=== PATIENT | male | born 1965 | race Caucasian/White ===

== ENCOUNTER → 2017-06-11 | Outpatient (CLI) | payer OTHER ==
[~2017-06-11] MED LIST: AMPDEX5 PO; ASPI81CH PO; Adderall Xr 2525 MG PO; CARI350 PO; CEPH500 PO; CHOL10002 PO; Cleocin HCl300 MG PO; DIAZ5 PO; DILT120 PO; DILT30 PO; DIPATR PO; DOCU100 PO; DULO30 PO; Dialyvite 5000 T5 MG PO; Diltiazem ER60 MG PO; FOLI1 PO; HUMIRA10 MG/0.2 SQ; HYDACE5 PO; HYDACE5325 PO; IBUP800 PO; INDO25 PO; METTREX2.5; MULVITMIND PO; NABU750 PO; OMEP20ER; OMEP40CA12 PO; OTREXUP; OXYACE5T PO; PIRO10 PO; PIRO20 PO; PRED10 PO; PRED5; PRED5 PO; PROM25 PO; Percocet 10-321 EACH PO; Percocet 5-3251 EACH PO; Prednisone20 MG PO; SOMA350 MG PO; SUCR1 PO; SULTRIDS PO; Valium5 MG PO; Zofran8 MG PO
== END | disposition home or self-care (01) ==
LOC: LAB EV 13:30 → LAB SHORT 13:30
DX: R35.0 Frequency of micturition (principal)
CPT/HCPCS: 87086

== ENCOUNTER → 2017-11-06 | Outpatient (CLI) | payer OTHER ==
[2017-11-12 12:10] LABS: M-SPIKE, % Not Observed % (Not Observed); PROTEIN,TOTAL,URINE 4.1 mg/dL (Not Estab.)
== END | disposition home or self-care (01) ==
LOC: LAB EV 06:00 → LAB SHORT 06:00
PROVIDERS: Internal Medicine
DX: R20.2 Paresthesia of skin (principal)
CPT/HCPCS: 84156; 84166

== ENCOUNTER 2018-08-06 11:00 | Emergency (ER) | payer OTHER ==
[~2018-08-06] VITALS: Ht 190.5 cm; Wt 111.1 kg
[2018-08-06] MEDS ORDERED: Percocet 10-321 EACH PO (11:27)
[2018-08-06] MEDS ORDERED: OMEPRAZOLE20 MG PO (11:27)
[2018-08-06] MEDS ORDERED: AMPDEX5 PO (11:28)
== END 2018-08-06 13:11 | disposition home or self-care (01) ==
LOC: ER 11:00
DX: M87.9 Osteonecrosis, unspecified (principal); Z79.899 Other long term (current) drug therapy; I47.1 Supraventricular tachycardia
CPT/HCPCS: 73502; 96372; 99283-25; J1170

== ENCOUNTER 2018-09-13 15:08 | Emergency (ER) | payer OTHER ==
[~2018-09-13] VITALS: Ht 193 cm; Wt 112.0 kg
[~2018-09-13 15:08] MED LIST changes: +GABA300T24 PO; +OMEPRAZOLE20 MG PO
== END 2018-09-13 17:23 | disposition home or self-care (01) ==
LOC: ER 15:08
DX: M87.9 Osteonecrosis, unspecified (principal); Z79.899 Other long term (current) drug therapy; Z79.891 Long term (current) use of opiate analgesic
CPT/HCPCS: 73502; 96372; 99283-25; J1170

== ENCOUNTER 2018-09-16 09:50 | Inpatient (IN) | payer OTHER ==
[~2018-09-16] VITALS: Ht 193 cm; Wt 112.5 kg
--- NOTE | 2018-09-16 10:24 | NUR ---
ADMISSION STARTED TO UNIT VSS BROUGHT TO UNIT IN WHEEL CHAIR. History, Chart, Medications and Allergies reviewed before start of procedure.Lungs clear T/O to Auscultation. Patient confirms NPO status and agrees with scheduled surgery.
--- NOTE | 2018-09-16 15:30 | NUR ---
"DAY SURGERY RN | ASSUMED CARE FROM RAMESH MENON. VSS. A/O. SITE C/D/I. LUNGS CLEAR. FACE TENT ON AT 10 L."
--- NOTE | 2018-09-16 16:02 | NUR ---
"DAY SURGERY RN | HANDOFF TO SAMUEL MENON"
--- NOTE | 2018-09-16 16:13 | NUR ---
at 1528 care was given to bo from [facility] at this time 1600 care taken over by arnie rendon recieved report vss. gave report to surgical floor nkurse. dressing cdi
--- NOTE | 2018-09-16 16:31 | NUR ---
PATIENT TAKEN TO SURGICAL FLOOR. REPORT GIVEN TO YOUNG MCFARLAND RN. PATIENT TAKEN TO ROOM 215
[2018-09-16] MEDS ORDERED: Bisoprolol Fumar5 MG PO (17:02)
--- NOTE | 2018-09-16 18:04 | NUR ---
POST OP: REPORT RECIEVED FROM SAMUEL IN PACU. PT TO UNIT AT ABOUT 1530. UPON ASSESSMENT PT IS A/O, VSS. REPORTS 8/10 PAIN AT L HIP. SURGICAL DRESSING CDI. ICE APPLIED. PT ABLE TO EAT JELLO, CRACKERS AND DRINK WATER. GIVEN 10MG OF ROXICODONE AND TYLENOL PER EMAR. ADMISSION CHARTING COMPLETED, WILL CTM PT STATUS
--- NOTE | 2018-09-16 18:43 | NUR ---
SUMMARY: NO CHANGE SINCE RECIEVED PT POST OP. VSS, PT A/O RATES PAIN 6/10, REPORTS "IS GETTING BETTER". PT GIVEN TYLENOL AND TORADOL WELL. AT BEDSIDE. WILL CTM AND REPORT TO DAY RN
[2018-09-17 04:46] LABS: BASOPHILS ABSOLUTE AUTO 0.01 K/mm3 (0.00-0.23); BASOPHILS PERCENT AUTO 0 % (0-2); EOSINOPHILS ABSOLUTE AUTO 0.02 K/mm3 (0.00-0.68); EOSINOPHILS PERCENT AUTO 0 % (0-6); Hematocrit 38.2 % (37.0-53.0); Hemoglobin 12.6 g/dL (13.5-17.5); IMMATURE GRAN ABSOLUTE AUTO 0.03 K/mm3 (0.00-0.10); IMMATURE GRAN PERCENT AUTO 0 % (0-1); LYMPHOCYTES ABSOLUTE AUTO 1.81 K/mm3 (0.84-5.20); LYMPHOCYTES PERCENT AUTO 16 % (21-46); MONOCYTES ABSOLUTE AUTO 0.98 K/mm3 (0.16-1.47); MONOCYTES PERCENT AUTO 9 % (4-13); Mean Corpuscular HGB 31.5 pg (26.0-34.0); Mean Corpuscular Volume 96 fL (80-100); Mean Platelet Volume 9.1 fL (9.1-12.4); NEUTROPHILS ABSOLUTE AUTO 8.49 K/mm3 (1.96-9.15); NEUTROPHILS PERCENT AUTO 75 % (41-73); Platelet Count 199 K/mm3 (150-400); RDW Standard Deviation 42.2 fL (35.1-46.3); White Blood Cell Count 11.34 K/mm3 (4.00-11.30)
[2018-09-17 05:00] LABS: Anion Gap 5 mmol/L (6-16); Blood Urea Nitrogen 16 mg/dL (8-24); Bun/Creatinine Ratio 16.4 (12.0-20.0); CO2, Blood 28 mmol/L (21-32); Calcium, Blood 8.4 mg/dL (8.5-10.1); Chloride, Blood 107 mmol/L (98-108); Creatinine, Blood 0.98 mg/dL (0.60-1.20); Glomerular Filtration Rate >60 (60-); Glucose, Blood 117 mg/dL (70-99); Magnesium, Blood 2.1 mg/dL (1.6-2.4); Potassium, Blood 4.3 mmol/L (3.5-5.5); Sodium, Blood 140 mmol/L (136-145)
--- NOTE | 2018-09-17 08:03 | NUR ---
SUMMARY: POD [address] BAIRES. VSS, AFEBRILE, TOLERATING PO INTAKE AND VOIDING WELL. PT PAIN WELL CONTROLLED WITH 10MG ROXICODONE X3 THIS SHIFT. PT RECEIVED IV ANCEF POST-OP AND IV VANCOMYCIN FOR OSTEONECROSIS. ANTICIPATE PT/OT THIS DAY.
[2018-09-17] MEDS ORDERED: Aspirin EC325 MG PO (15:54)
[2018-09-17] MEDS ORDERED: OXYC5 PO (15:55)
--- NOTE | 2018-09-17 16:41 | NUR ---
DISCHARGE EDUCATION COMPLETED AND PACKET WITH PT. PT UNDERSTANDS POST OP CARE, WENT OVER WITH PT ASWELL. GIVEN SURGICAL DRESSINGS. IV DC'D. PT DISCHARGED AT 1630, LEFT UNIT IN WHEEL CHAIR WITH .
--- NOTE | 2018-09-18 16:55 | NUR ---
09/18/18 1655 Poonam Green VERIFICATIONS: EDIT CHART.
== END 2018-09-17 17:09 | disposition home or self-care (01) | DRG 470 ==
LOC: SURS 09:50 → PRE IP 11:45 → SURS 16:24
PROVIDERS: ADMIT Orthopaedic Surgery
PROC: 8E0YXBZ Computer Assisted Procedure of Lower Extremity (ICD-10-PCS; 2018-09-16)
PROC: 0SRB0JA Replacement of Left Hip Joint with Synthetic Substitute, Uncemented, Open Approach (ICD-10-PCS; principal; 2018-09-16 11:45)
DX: M13.852 Other specified arthritis, left hip (principal); M87.852 Other osteonecrosis, left femur; M06.9 Rheumatoid arthritis, unspecified; I10 Essential (primary) hypertension; G47.33 Obstructive sleep apnea (adult) (pediatric); K21.9 Gastro-esophageal reflux disease without esophagitis
CPT/HCPCS: 36415; 72170; 80048; 83735; 85025; 86850; 86900; 86901; 88300; 94762; 97110; 97116; 97161; 97166; 97530; 97535; C1713; C1776; J0171; J0690; J0735; J1100; J1885; J2250; J2405; J2704; J2795; J3010; J3370; J7050; J7120

== ENCOUNTER → 2019-09-06 | Outpatient (CLI) | payer OTHER ==
[~2019-09-06] MED LIST changes: +Aspirin EC325 MG PO; +Bisoprolol Fumar5 MG PO; +OXYC5 PO
== END | disposition home or self-care (01) ==
LOC: LAB SHORT 16:13 → LAB EV 16:13
DX: J02.9 Acute pharyngitis, unspecified (principal)
CPT/HCPCS: 87081

== ENCOUNTER → 2020-03-06 | Outpatient (CLI) | payer OTHER ==
[~2020-03-06] MED LIST changes: +OMEP20ER PO; +TRAZ50 PO
== END | disposition home or self-care (01) ==
LOC: LAB EV 11:10 → LAB SHORT 11:10
DX: Z48.01 Encounter for change or removal of surgical wound dressing (principal)
CPT/HCPCS: 87070; 87205

== ENCOUNTER 2020-07-10 00:39 | Emergency (ER) | payer OTHER ==
[~2020-07-10] VITALS: Ht 193 cm; Wt 104.3 kg
[~2020-07-10 00:39] MED LIST changes: -OMEP20ER PO; -TRAZ50 PO
[2020-07-10] MEDS ORDERED: OMEP20ER PO (00:58)
[2020-07-10] MEDS ORDERED: TRAZ50 PO (00:58)
== END 2020-07-10 01:09 ==
LOC: ER 00:39
DX: Z00.00 Encounter for general adult medical examination without abnormal findings (principal); Z79.899 Other long term (current) drug therapy; Z79.82 Long term (current) use of aspirin
CPT/HCPCS: 99282

== ENCOUNTER → 2020-10-08 | Outpatient (CLI) | payer OTHER ==
[~2020-10-08] MED LIST changes: +OMEP20ER PO; +TRAZ50 PO
== END | disposition home or self-care (01) ==
LOC: LAB SHORT 11:12 → LAB EV 11:12
DX: L03.116 Cellulitis of left lower limb (principal)
CPT/HCPCS: 87070; 87077; 87147; 87186; 87205

== ENCOUNTER → 2020-10-12 | Outpatient (CLI) | payer OTHER ==
[2020-10-12 13:08] LABS: BASOPHILS ABSOLUTE AUTO 0.04 K/mm3 (0.00-0.23); BASOPHILS PERCENT AUTO 1 % (0-2); EOSINOPHILS ABSOLUTE AUTO 0.03 K/mm3 (0.00-0.68); EOSINOPHILS PERCENT AUTO 0 % (0-6); Hematocrit 48.8 % (37.0-53.0); Hemoglobin 16.4 g/dL (13.5-17.5); IMMATURE GRAN ABSOLUTE AUTO 0.02 K/mm3 (0.00-0.10); IMMATURE GRAN PERCENT AUTO 0 % (0-1); LYMPHOCYTES ABSOLUTE AUTO 1.39 K/mm3 (0.84-5.20); LYMPHOCYTES PERCENT AUTO 17 % (21-46); MONOCYTES ABSOLUTE AUTO 0.56 K/mm3 (0.16-1.47); MONOCYTES PERCENT AUTO 7 % (4-13); Mean Corpuscular HGB 31.4 pg (26.0-34.0); Mean Corpuscular HGB Conc 33.6 g/dL (31.5-36.5); Mean Corpuscular Volume 94 fL (80-100); Mean Platelet Volume 8.6 fL (9.1-12.4); NEUTROPHILS ABSOLUTE AUTO 6.17 K/mm3 (1.96-9.15); NEUTROPHILS PERCENT AUTO 75 % (41-73); Platelet Count 311 K/mm3 (150-400); RDW Coefficient Variation 12.7 % (11.7-14.2); RDW Standard Deviation 43.7 fL (35.1-46.3); Red Blood Cell Count 5.22 M/mm3 (4.30-5.90); White Blood Cell Count 8.21 K/mm3 (4.00-11.30)
== END | disposition home or self-care (01) ==
LOC: LAB 13:04 → LAB SHORT 13:04
PROVIDERS: Physician Assistant
DX: L08.9 Local infection of the skin and subcutaneous tissue, unspecified (principal)
CPT/HCPCS: 85025

== ENCOUNTER → 2021-02-22 | Outpatient (CLI) | payer OTHER ==
[2021-02-22 20:49] LABS: Adenovirus F 40/41 Not Detected (NOT DETECT); Astrovirus Not Detected (NOT DETECT); Campylobacter Sp Not Detected (NOT DETECT); Cryptosporidium Not Detected (NOT DETECT); Cyclospora Cayetanensis Not Detected (NOT DETECT); E. Coli O157 Not Detected (NOT DETECT); Entamoeba Histolytica Not Detected (NOT DETECT); Enteroaggregative E. coli-EAEC Not Detected (NOT DETECT); Enteropathogenic E. coli-EPEC Not Detected (NOT DETECT); Enterotoxigenic E. coli-ETEC Not Detected (NOT DETECT); Giardia Lamblia Not Detected (NOT DETECT); Norovirus GI/GII Not Detected (NOT DETECT); Plesiomonas Shigelloides Not Detected (NOT DETECT); Rotavirus A Not Detected (NOT DETECT); Salmonella Sp Not Detected (NOT DETECT); Sapovirus Not Detected (NOT DETECT); Shiga Toxin-prod E. coli-STEC Not Detected (NOT DETECT); Shigella/Enteroin E. coli-EIEC Not Detected (NOT DETECT); Vibrio Cholerae Not Detected (NOT DETECT); Vibrio Sp Not Detected (NOT DETECT); Yersinia Enterocolitica Not Detected (NOT DETECT)
== END | disposition home or self-care (01) ==
LOC: LAB 13:40 → LAB SHORT 13:40
PROVIDERS: Internal Medicine
DX: A06.1 Chronic intestinal amebiasis (principal)
CPT/HCPCS: 0097U

== ENCOUNTER 2022-09-03 07:51 | Day surgery (SDC) | payer OTHER ==
[2022-09-03] VITALS (14 sets, daily range): BP systolic 100–141; BP diastolic 60–88
[~2022-09-03] VITALS: Ht 193 cm; Wt 102.4 kg
[~2022-09-03 07:51] MED LIST changes: +AMLO5 PO; +Cialis5 MG PO; +DESVENLAFAXINE25 MG PO; +Feldene20 MG PO; +GABA300 PO; -GABA300T24 PO; +MULVITA PO; +OXYC10ER PO; +STOOL SOFTENER PO; +Voltaren100 GM TOP; +ZOLP10 PO
--- NOTE | 2022-09-03 09:20 | NUR ---
Ambulatory in Day SurgeryPre-Op teaching done. Pt verbalizes understanding. Patient confirms NPO status and agrees with scheduled surgery. History, Chart, Medications and Allergies reviewed before start of procedure.
--- NOTE | 2022-09-03 11:10 | NUR ---
09/03/22 1110 Zenaida Lora SMALL SCRAPE WITH SCAB ON PTS RIGHT KIM UPON ARRIVAL TO THE OR
--- NOTE | 2022-09-03 13:00 | NUR ---
ARRIVAL PATIENT TO ROOM 217 VIA BED. VSS ON RA, LUNGS CLEAR. X2 AQUACELS TO RIGHT KNEE, S/P R TKA, POLAR PACK IN PLACE. PATIENT HAD SPINAL, SENSATION TO HIPS CURRENTLY, UNABLE TO MOVE FEET AT THIS ITME. DENIES PAIN. ORIENTED TO ROOM & CALL LIGHT, IN REACH. TOLERATING WATER & JELLO AT THIS TIME.
--- NOTE | 2022-09-03 18:08 | NUR ---
SHIFT SUMMARY NO ACUTE CHANGES SINCE ARRIVAL TO UNIT. PATIENT DENIES PAIN, STILL HAS NUMBNESS TO RLE, FULL SENSATION HAS NOT RETURNED. PATIENT HAS NOT BEEN OOB YET D/T THIS. AQUACELS TO RIGHT KNEE C/D/I. POLAR PACK IN PLACE. GALI MANNING. HOME CPAP SETUP AT [facility] W/ 2L O2 BLEED IN. CALLS APPROPRIATELY, IN REACH. WILL REPORT TO ONCOMING RN AT 1900.
[2022-09-04 02:46] VITALS: BP 123/73
--- NOTE | 2022-09-04 04:43 | NUR ---
SHIFT SUMMARY A/O X4- POD1 R TKA, AQUACEL C/D/I. AMBULATED TO BATHROOM W/ SBA, FWW, AND GB. VOIDING WELL, TOLERATED PO INTAKE W/ NO N/V REPORTED. PAIN MANAGED W/ PO PAIN MEDICATIONS. VSS. WILL REPORT TO ONCOMING RN.
[2022-09-04 04:51] LABS: BASOPHILS ABSOLUTE AUTO 0.01 K/mm3 (0.00-0.23); BASOPHILS PERCENT AUTO 0 % (0-2); EOSINOPHILS ABSOLUTE AUTO 0.02 K/mm3 (0.00-0.68); EOSINOPHILS PERCENT AUTO 0 % (0-6); Hematocrit 37.6 % (37.0-53.0); Hemoglobin 12.6 g/dL (13.5-17.5); IMMATURE GRAN ABSOLUTE AUTO 0.04 K/mm3 (0.00-0.10); IMMATURE GRAN PERCENT AUTO 0 % (0-1); LYMPHOCYTES ABSOLUTE AUTO 1.39 K/mm3 (0.84-5.20); LYMPHOCYTES PERCENT AUTO 12 % (21-46); MONOCYTES ABSOLUTE AUTO 0.77 K/mm3 (0.16-1.47); MONOCYTES PERCENT AUTO 7 % (4-13); Mean Corpuscular HGB Conc 33.5 g/dL (31.5-36.5); Mean Corpuscular Volume 95 fL (80-100); Mean Platelet Volume 9.7 fL (9.1-12.4); NEUTROPHILS ABSOLUTE AUTO 9.07 K/mm3 (1.96-9.15); NEUTROPHILS PERCENT AUTO 80 % (41-73); Platelet Count 205 K/mm3 (150-400); RDW Coefficient Variation 12.9 % (11.7-14.2); RDW Standard Deviation 45.4 fL (35.1-46.3); Red Blood Cell Count 3.94 M/mm3 (4.30-5.90)
[2022-09-04 05:13] LABS: Bun/Creatinine Ratio 20.6 (12.0-20.0); Calcium, Blood 8.5 mg/dL (8.5-10.1); Creatinine, Blood 0.83 mg/dL (0.60-1.20); Magnesium, Blood 2.2 mg/dL (1.6-2.4); Potassium, Blood 4.3 mmol/L (3.5-5.5)
[2022-09-04] MEDS ORDERED: ASPI81CH PO (07:18)
[2022-09-04] MEDS ORDERED: ACET500 PO (07:18)
[2022-09-04] MEDS ORDERED: SULTRIDS PO (07:19)
[2022-09-04 07:46] VITALS: BP 131/79
--- NOTE | 2022-09-04 09:30 | NUR ---
DISCHARGE PT HAS CLEARED THERAPY WELL. PAIN WELL CONTROLLED PER EMAR. EATING, DRINKING, & VOIDING WELL. DISCUSSED DISCHARGE INSTRUCTIONS,S ENT WITH PATIENT. AQUACELS & POLAR PACK ALSO SENT WITH PATIENT. ESCORTED OUT VIA W/C.
== END 2022-09-04 09:15 | disposition home or self-care (01) ==
LOC: ORSCMMR 07:51 → ORD 10:15 → SURS 13:00 → ORSCMMR 09-04 09:15
PROVIDERS: Orthopaedic Surgery
PROC: 0SRC0JA Replacement of Right Knee Joint with Synthetic Substitute, Uncemented, Open Approach (ICD-10-PCS; principal; 2022-09-03 10:15)
PROC: 8E0Y0CZ Robotic Assisted Procedure of Lower Extremity, Open Approach (ICD-10-PCS; principal; 2022-09-03 10:15)
DX: M17.11 Unilateral primary osteoarthritis, right knee (principal); K21.9 Gastro-esophageal reflux disease without esophagitis; G47.33 Obstructive sleep apnea (adult) (pediatric); E78.5 Hyperlipidemia, unspecified; I10 Essential (primary) hypertension; Z79.899 Other long term (current) drug therapy
CPT/HCPCS: 27447; 20985; S2900; 36415; 73560-RT; 80048; 83735; 85025; 94660; 94762; 97110; 97116; 97162; A9270; C1776; J0171; J0690; J0735; J0780; J1100; J1885; J2250; J2405; J2704; J2795; J3010; J7120

== ENCOUNTER 2022-09-30 19:18 | Emergency (ER) | payer OTHER ==
[~2022-09-30] VITALS: Ht 193 cm; Wt 103.4 kg
[~2022-09-30 19:18] MED LIST changes: +ACET500 PO; +Amphetamine Sal30 MG PO; -OXYC10ER PO; +OXYC10TA19 PO
[2022-09-30 19:46] LABS: BASOPHILS ABSOLUTE AUTO 0.02 K/mm3 (0.00-0.23); BASOPHILS PERCENT AUTO 0 % (0-2); EOSINOPHILS PERCENT AUTO 0 % (0-6); Hematocrit 40.1 % (37.0-53.0); Hemoglobin 13.5 g/dL (13.5-17.5); IMMATURE GRAN ABSOLUTE AUTO 0.03 K/mm3 (0.00-0.10); IMMATURE GRAN PERCENT AUTO 0 % (0-1); LYMPHOCYTES ABSOLUTE AUTO 0.45 K/mm3 (0.84-5.20); LYMPHOCYTES PERCENT AUTO 6 % (21-46); MONOCYTES PERCENT AUTO 7 % (4-13); Mean Corpuscular HGB 31.6 pg (26.0-34.0); Mean Corpuscular HGB Conc 33.7 g/dL (31.5-36.5); Mean Corpuscular Volume 94 fL (80-100); Mean Platelet Volume 8.9 fL (9.1-12.4); NEUTROPHILS ABSOLUTE AUTO 6.27 K/mm3 (1.96-9.15); NEUTROPHILS PERCENT AUTO 86 % (41-73); Platelet Count 183 K/mm3 (150-400); RDW Coefficient Variation 13.5 % (11.7-14.2); RDW Standard Deviation 46.5 fL (35.1-46.3); Red Blood Cell Count 4.27 M/mm3 (4.30-5.90); White Blood Cell Count 7.27 K/mm3 (4.00-11.30)
[2022-09-30 20:07] LABS: Albumin, Blood 3.6 g/dL (3.4-5.0); Bilirubin, Total 0.5 mg/dL (0.1-1.0); Bun/Creatinine Ratio 19.2 (12.0-20.0); Calcium, Blood 8.8 mg/dL (8.5-10.1); Creatinine, Blood 1.04 mg/dL (0.60-1.20); Globulin, Blood 3.6 g/dL (2.2-4.0); Potassium, Blood 3.8 mmol/L (3.5-5.5); Total Protein, Blood 7.2 g/dL (6.4-8.2)
[2022-09-30 22:57] LABS: Influenza A, PCR NEGATIVE (NEGATIVE); Influenza B, PCR NEGATIVE (NEGATIVE); Resp Syncytial Virus, PCR NEGATIVE (NEGATIVE); SARS-Cov-2 (COVID-19) PCR, MMC NEGATIVE (NEGATIVE)
[2022-09-30 23:00] VITALS: BP 126/85
[2022-09-30] MEDS ORDERED: ONDA4ODT MM ×2 (23:19)
[2022-09-30] MEDS ORDERED: HYOS.125 PO ×2 (23:19)
== END 2022-09-30 23:43 | disposition home or self-care (01) ==
LOC: ER 19:18
PROVIDERS: Emergency Medicine
DX: K52.9 Noninfective gastroenteritis and colitis, unspecified (principal); R50.9 Fever, unspecified; Z96.651 Presence of right artificial knee joint; Z79.899 Other long term (current) drug therapy; Z79.82 Long term (current) use of aspirin
CPT/HCPCS: 0241U; 74177; 80053; 83605; 83690; 85025; 96374-59; 96375; 99284-25; A9270; J1885; J2270; J2405; J7030; Q9967

== ENCOUNTER 2022-10-02 11:03 | Inpatient (IN) | payer OTHER ==
[~2022-10-02 11:03] MED LIST changes: +HYOS.125 PO; +ONDA4ODT MM
[2022-10-02 12:35] LABS: BASOPHILS ABSOLUTE AUTO 0.02 K/mm3 (0.00-0.23); BASOPHILS PERCENT AUTO 0 % (0-2); EOSINOPHILS PERCENT AUTO 0 % (0-6); Hematocrit 36.9 % (37.0-53.0); Hemoglobin 12.1 g/dL (13.5-17.5); IMMATURE GRAN ABSOLUTE AUTO 0.05 K/mm3 (0.00-0.10); IMMATURE GRAN PERCENT AUTO 1 % (0-1); LYMPHOCYTES ABSOLUTE AUTO 0.41 K/mm3 (0.84-5.20); LYMPHOCYTES PERCENT AUTO 4 % (21-46); MONOCYTES ABSOLUTE AUTO 0.34 K/mm3 (0.16-1.47); MONOCYTES PERCENT AUTO 3 % (4-13); Mean Corpuscular HGB 31.7 pg (26.0-34.0); Mean Corpuscular HGB Conc 32.8 g/dL (31.5-36.5); Mean Corpuscular Volume 97 fL (80-100); Mean Platelet Volume 9.7 fL (9.1-12.4); NEUTROPHILS ABSOLUTE AUTO 9.04 K/mm3 (1.96-9.15); NEUTROPHILS PERCENT AUTO 92 % (41-73); Platelet Count 126 K/mm3 (150-400); RDW Coefficient Variation 13.5 % (11.7-14.2); RDW Standard Deviation 48.3 fL (35.1-46.3); Red Blood Cell Count 3.82 M/mm3 (4.30-5.90); White Blood Cell Count 9.86 K/mm3 (4.00-11.30)
[2022-10-02 12:57] LABS: Albumin, Blood 2.7 g/dL (3.4-5.0); Albumin/Globulin Ratio 0.7 (0.8-1.8); Bilirubin, Total 0.6 mg/dL (0.1-1.0); Bun/Creatinine Ratio 18.9 (12.0-20.0); Calcium, Blood 8.6 mg/dL (8.5-10.1); Creatinine, Blood 0.95 mg/dL (0.60-1.20); Potassium, Blood 3.7 mmol/L (3.5-5.5); Total Protein, Blood 6.7 g/dL (6.4-8.2)
[2022-10-02 15:15] LABS: Glucose, CSF 70 mg/dL (40-70)
[2022-10-02 15:24] LABS: RBC Count, CSF 1138 /mm3 (0-0)
[2022-10-02 15:25] LABS: Color, CSF Pink (No Color); WBC Count, CSF 1 /mm3 (0-5)
[2022-10-02 15:26] LABS: Appearance, CSF Clear (Clear)
[2022-10-02 15:38] LABS: WBC Count, CSF 0 /mm3 (0-5)
[2022-10-02 15:39] LABS: Appearance, CSF Clear (Clear); Color, CSF No Color (No Color); RBC Count, CSF 2 /mm3 (0-0)
[2022-10-02] MEDS ORDERED: OXAYDO5 M1 PO (17:12)
[2022-10-02] MEDS ORDERED: METO10 PO ×2 (17:12)
[2022-10-02 17:40] LABS: Cryptococcus Neoformans/Gattii Not Detected (NOT DETECT); Enterovirus Not Detected (NOT DETECT); Escherichia Coli K1 Not Detected (NOT DETECT); Haemophilus Influenza Not Detected (NOT DETECT); Herpes Simplex Virus 1 Not Detected (NOT DETECT); Herpes Simplex Virus 2 Not Detected (NOT DETECT); Human Herpesvirus 6 Not Detected (NOT DETECT); Human Parechovirus Not Detected (NOT DETECT); Listeria Monocytogenes Not Detected (NOT DETECT); Neisseria Meningitidis Not Detected (NOT DETECT); Streptococcus Agalactiae Not Detected (NOT DETECT); Streptococcus Pneumoniae Not Detected (NOT DETECT); Varicella Zoster Virus Not Detected (NOT DETECT)
[2022-10-02 19:05] LABS: Source, Urine Clean Catch
[2022-10-02 19:15] LABS: Appearance, Urine Hazy (Clear); Bilirubin, Urine Neg (Neg); Blood, Urine 5+ (Neg); Color, Urine Amber (P-Yellow); Glucose Qualitative, Urine Neg (Neg); Ketones, Urine 2+ (Neg); Leukocyte Esterase, Urine Neg (Neg); Nitrite, Urine Neg (Neg); Protein, Urine 2+ (Neg); Specific Gravity, Urine 1.025 (1.003-1.022); Urobilinogen, Urine NORM (Normal)
[2022-10-02 19:55] LABS: Amorphous Light (0-Heavy); Bacteria Few /hpf; Mucus Mod (0-Heavy); Squamous Epithelial Cells Rare /hpf (Few); White Blood Cells, Urine 0-2 /hpf (0-5)
[2022-10-02 21:33] LABS: Adenovirus Not Detected (NOT DETECT); Bordetella pertussis Not Detected (NOT DETECT); Chlamydophila pneumoniae Not Detected (NOT DETECT); Coronavirus 229E Not Detected (NOT DETECT); Coronavirus HKU1 Not Detected (NOT DETECT); Coronavirus NL63 Not Detected (NOT DETECT); Coronavirus OC43 Not Detected (NOT DETECT); Human Metapneumovirus Not Detected (NOT DETECT); Human Rhinovirus/Enterovirus Not Detected (NOT DETECT); Influenza A/2009-H1 Not Detected (NOT DETECT); Influenza A/H1 Not Detected (NOT DETECT); Influenza A/H3 Not Detected (NOT DETECT); Influenza B Not Detected (NOT DETECT); Mycoplasma pneumoniae Not Detected (NOT DETECT); Parainfluenza Virus 1 Not Detected (NOT DETECT); Parainfluenza Virus 2 Not Detected (NOT DETECT); Parainfluenza Virus 3 Not Detected (NOT DETECT); Parainfluenza Virus 4 Not Detected (NOT DETECT); Respiratory Syncytial Virus Not Detected (NOT DETECT); SARS-Cov-2 (COVID-19), BioFire Not Detected (NOT DETECT)
--- NOTE | 2022-10-02 23:17 | NUR ---
ARRIVAL NEW ADMIT FROM ER, PT ARRIVED IN NO DISTRESS. ABLE TO TRANSFER SELF TO BED WITH MIN ASSIT. PT REPORTS PAIN BEARING FULL WEIGHT ON LLE D/T SWELLING RELATED TO RECENT SURGERY (X5 WEEKS). PT REPORTS SYMPTOMS OF GENERALIZED FATIGUE, WEAKNESS, AND DISCOMFORT. NO N/V AT THIS TIME BUT PT HAS BEEN EXPERIENCING THIS. LIQUID STOOL NOTED. RASH NOTED T/O PTS BODY, BORDERS OF RASH MARKED. PT REPORTS HE IS HAVING A FLAIR UP OF REITERS SYNDROME, CHRONIC CONDITION, WEAKNESS NOTED IN BUE. PT MEDICATED WITH TYLENOL, IV FLUIDS INFUSING, CALL LIGHT IN REACH
[2022-10-03 00:46] LABS: Campylobacter Sp Detected (NOT DETECT); Enteroaggregative E. coli-EAEC Not Detected (NOT DETECT); Enterotoxigenic E. coli-ETEC Detected (NOT DETECT); Plesiomonas Shigelloides Not Detected (NOT DETECT); Salmonella Sp Not Detected (NOT DETECT); Vibrio Cholerae Not Detected (NOT DETECT); Vibrio Sp Not Detected (NOT DETECT); Yersinia Enterocolitica Not Detected (NOT DETECT)
[2022-10-03 00:47] LABS: Adenovirus F 40/41 Not Detected (NOT DETECT); Astrovirus Not Detected (NOT DETECT); Cryptosporidium Not Detected (NOT DETECT); Cyclospora Cayetanensis Not Detected (NOT DETECT); E. Coli O157 Not Detected (NOT DETECT); Entamoeba Histolytica Not Detected (NOT DETECT); Enteropathogenic E. coli-EPEC Not Detected (NOT DETECT); Giardia Lamblia Not Detected (NOT DETECT); Norovirus GI/GII Not Detected (NOT DETECT); Rotavirus A Not Detected (NOT DETECT); Sapovirus Not Detected (NOT DETECT); Shiga Toxin-prod E. coli-STEC Detected (NOT DETECT); Shigella/Enteroin E. coli-EIEC Not Detected (NOT DETECT)
[2022-10-03 02:31] VITALS: BP 143/83
--- NOTE | 2022-10-03 04:24 | NUR ---
SHIFT SUMMARY VSS, PT NOTED TO HAVE A FEVER, MEDICATED PER EMAR. PT CONTINUES TO SHIVER, PT REPORTS HE FEELS IF HE HAS SHAKEN SO MUCH THAT HIS ABD MUSCLES ARE SORE. MEDICATED WITH FENT TO HELP EASE MUSCLE PAIN WITH GOOD RESULTS. PT HAS HAD MINIMAL PO INTAKE, REPORTS NO HUNGER AND MINIMAL THIRST. IV FLUIDS INFUSING. PT PASSING SMALL LIQUID STOOLS, DARK YELLOW URINE. NO N/V NOTED. LP SPOT REMAINS C/D/I. NO ACUTE EVENTS T/O THE NIGHT. AWAITING FURTHER TEST RESULTS AT THIS TIME. THE PATIENT IS CURRENTLY RESTING, IN NO DISTRESS, CALL LIGHT IN REACH NO IGNITION SOURCE OR FIRE HAZARD IDENTIFIED.
[2022-10-03 05:55] LABS: BASOPHILS ABSOLUTE AUTO 0.01 K/mm3 (0.00-0.23); BASOPHILS PERCENT AUTO 0 % (0-2); EOSINOPHILS PERCENT AUTO 0 % (0-6); Hematocrit 33.1 % (37.0-53.0); IMMATURE GRAN ABSOLUTE AUTO 0.05 K/mm3 (0.00-0.10); IMMATURE GRAN PERCENT AUTO 1 % (0-1); LYMPHOCYTES ABSOLUTE AUTO 0.56 K/mm3 (0.84-5.20); LYMPHOCYTES PERCENT AUTO 7 % (21-46); MONOCYTES ABSOLUTE AUTO 0.42 K/mm3 (0.16-1.47); MONOCYTES PERCENT AUTO 5 % (4-13); Mean Corpuscular HGB 31.2 pg (26.0-34.0); Mean Corpuscular HGB Conc 33.2 g/dL (31.5-36.5); Mean Corpuscular Volume 94 fL (80-100); Mean Platelet Volume 10.7 fL (9.1-12.4); NEUTROPHILS ABSOLUTE AUTO 7.05 K/mm3 (1.96-9.15); NEUTROPHILS PERCENT AUTO 87 % (41-73); Platelet Count 120 K/mm3 (150-400); RDW Coefficient Variation 13.5 % (11.7-14.2); RDW Standard Deviation 46.5 fL (35.1-46.3); Red Blood Cell Count 3.53 M/mm3 (4.30-5.90); White Blood Cell Count 8.09 K/mm3 (4.00-11.30)
[2022-10-03 06:27] LABS: Bun/Creatinine Ratio 20.8 (12.0-20.0); Calcium, Blood 8.3 mg/dL (8.5-10.1); Creatinine, Blood 0.82 mg/dL (0.60-1.20); Potassium, Blood 3.6 mmol/L (3.5-5.5)
[2022-10-03 07:41] VITALS: BP 113/66
[2022-10-03 16:54] VITALS: BP 140/84
[2022-10-03 19:26] VITALS: BP 129/80
--- NOTE | 2022-10-03 20:15 | NUR ---
SUMARY- PT A/O X4, INDEPENDANT IN ROOM. PT HAS RASH OVER ENTIRE BODY, MOSTLY ANT THIGHS AND BACK, MARKED WITH SHARPIE. AT THE END OF THE DAY SOME OF THE RASH IS LARGER AND EXTENDING OUT OF LINES. RED, CIRCULAR, SLIGHTLY RAISED NOT ITCHY. L KNEE IS SWOLLEN BUT NOT RED. PT HAS PAIN IN THE JOINTS, MEDICATED THIS AM WITH FENT WITH RELEIF, CHANGED TO OXYCONTIN AND PT STATES THAT WORKED WELL. TOLERATING FOOD FOR THE FIRST TIME TODAY SINCE 4 DAYS. STATES CONTINUED ABD TIGHTNESS AND TENDER, ESPECIALLY LUQ. STATES CONT DIARRHEA. VOIDING WITHOUT DIFFICULTY. ORDER TO S.L AFTER THIS BAG OF FLUIDS PT IS TAKING IN LG AMOUNTS OF FLUIDS. REPORTED ALL TO SHONNA LAGOS RN
--- NOTE | 2022-10-04 04:07 | NUR ---
SHIFT SUMMARY PATIENT HAD NO ACUTE CHANGES. AXOX 4 AND INDEPENDENT IN ROOM. RASH MARKED WITH SHARPIE T/O BODY, MORE ON BACK AND ANT THIGHS. LEFT KNEE SWOLLEN WITH HX OF RECENT KNEE REPLACEMENT. SCHEDULE OXYCONTIN GIVEN FOR ABDOMEN/KNEE PAIN. DENIES CHEST PAIN, SOB, AND N/V. ON ROOM AIR. REFUSED NEW PIV. VSS/AFEBRILE. CALL LIGHT IN REACH. BED IN LOWEST POSITION. WILL CONTINUE TO MONITOR UNTIL DAY SHIFT NURSE ASSUMES CARE.
[2022-10-04 05:18] LABS: BASOPHILS ABSOLUTE AUTO 0.01 K/mm3 (0.00-0.23); BASOPHILS PERCENT AUTO 0 % (0-2); EOSINOPHILS ABSOLUTE AUTO 0.01 K/mm3 (0.00-0.68); EOSINOPHILS PERCENT AUTO 0 % (0-6); Hematocrit 33.8 % (37.0-53.0); IMMATURE GRAN ABSOLUTE AUTO 0.02 K/mm3 (0.00-0.10); IMMATURE GRAN PERCENT AUTO 0 % (0-1); LYMPHOCYTES ABSOLUTE AUTO 0.97 K/mm3 (0.84-5.20); LYMPHOCYTES PERCENT AUTO 19 % (21-46); MONOCYTES PERCENT AUTO 8 % (4-13); Mean Corpuscular HGB 30.9 pg (26.0-34.0); Mean Corpuscular HGB Conc 32.5 g/dL (31.5-36.5); Mean Corpuscular Volume 95 fL (80-100); Mean Platelet Volume 10.1 fL (9.1-12.4); NEUTROPHILS ABSOLUTE AUTO 3.82 K/mm3 (1.96-9.15); NEUTROPHILS PERCENT AUTO 73 % (41-73); Platelet Count 149 K/mm3 (150-400); RDW Coefficient Variation 13.5 % (11.7-14.2); RDW Standard Deviation 47.7 fL (35.1-46.3); Red Blood Cell Count 3.56 M/mm3 (4.30-5.90); White Blood Cell Count 5.23 K/mm3 (4.00-11.30)
[2022-10-04 05:28] VITALS: BP 122/84
[2022-10-04 05:43] LABS: Albumin, Blood 2.3 g/dL (3.4-5.0); Albumin/Globulin Ratio 0.6 (0.8-1.8); Bilirubin, Total 0.3 mg/dL (0.1-1.0); Calcium, Blood 8.5 mg/dL (8.5-10.1); Creatinine, Blood 0.88 mg/dL (0.60-1.20); Globulin, Blood 3.9 g/dL (2.2-4.0); Potassium, Blood 3.6 mmol/L (3.5-5.5); Total Protein, Blood 6.2 g/dL (6.4-8.2)
[2022-10-04 07:33] VITALS: BP 116/72
[2022-10-04 10:09] LABS: HIV AB/P24 AG SCREEN Non Reactive (Non Reactive)
[2022-10-04] MEDS ORDERED: NEURONTIN300 MG PO ×2 (14:41)
[2022-10-04 16:02] VITALS: BP 124/82
[2022-10-04 19:14] VITALS: BP 135/88
--- NOTE | 2022-10-04 19:17 | NUR ---
SHIFT SUMMARY: PT A/O X 4, IND IN ROOM. PT REPORTED DIZZINESS AND HEADACHE WHEN HE AMBULATED TO THE BATHROOM AND THE HALLS. PAIN MANAGED WITH CURRENT REGIMEN. PT DID NOT FEEL COMFORTABLE WITH DISCHARGE HOME WITH DIZZINESS HE EXPERIENCED SO HIS DISCHARGE WAS HELD. MD DORADO.
--- NOTE | 2022-10-05 04:02 | NUR ---
SHIFT SUMMARY PATIENT HAD NO ACUTE CHANGES. AXOX 4 AND INDEPENDENT IN ROOM. NO SYNCOPE EVENTS. SIGNIFICANT OTHER STAYED IN ROOM FIRST FEW HOURS. DENIES CHEST PAIN, SOB, AND N/V. USES CPAP AT NIGHT. VSS/AFEBRILE. SCHEDULE OXYCONTIN GIVEN FOR RIGHT KNEE PAIN. SCATTERED RASH SITES IMPROVING. POSSIBLE DISCHARGE. CALL LIGHT IN REACH. BED IN LOWEST POSITION. WILL CONTINUE TO MONITOR UNTIL DAY SHIFT NURSE ASSUMES CARE.
[2022-10-05 04:10] LABS: HBSAG SCREEN Negative (Negative); HCV AB Non Reactive (Non Reactive); HEP B CORE AB, TOT Negative (Negative)
[2022-10-05 04:21] VITALS: BP 136/92
[2022-10-05 05:05] LABS: BASOPHILS ABSOLUTE AUTO 0.01 K/mm3 (0.00-0.23); BASOPHILS PERCENT AUTO 0 % (0-2); EOSINOPHILS ABSOLUTE AUTO 0.02 K/mm3 (0.00-0.68); EOSINOPHILS PERCENT AUTO 1 % (0-6); Hematocrit 34.2 % (37.0-53.0); Hemoglobin 11.2 g/dL (13.5-17.5); IMMATURE GRAN ABSOLUTE AUTO 0.01 K/mm3 (0.00-0.10); IMMATURE GRAN PERCENT AUTO 0 % (0-1); LYMPHOCYTES ABSOLUTE AUTO 0.97 K/mm3 (0.84-5.20); LYMPHOCYTES PERCENT AUTO 28 % (21-46); MONOCYTES ABSOLUTE AUTO 0.44 K/mm3 (0.16-1.47); MONOCYTES PERCENT AUTO 13 % (4-13); Mean Corpuscular HGB 30.6 pg (26.0-34.0); Mean Corpuscular HGB Conc 32.7 g/dL (31.5-36.5); Mean Corpuscular Volume 93 fL (80-100); Mean Platelet Volume 9.5 fL (9.1-12.4); NEUTROPHILS ABSOLUTE AUTO 1.98 K/mm3 (1.96-9.15); NEUTROPHILS PERCENT AUTO 58 % (41-73); Platelet Count 179 K/mm3 (150-400); RDW Coefficient Variation 13.5 % (11.7-14.2); RDW Standard Deviation 46.7 fL (35.1-46.3); Red Blood Cell Count 3.66 M/mm3 (4.30-5.90); White Blood Cell Count 3.43 K/mm3 (4.00-11.30)
[2022-10-05 05:59] LABS: Albumin, Blood 2.5 g/dL (3.4-5.0); Albumin/Globulin Ratio 0.7 (0.8-1.8); Bilirubin, Total 0.3 mg/dL (0.1-1.0); Bun/Creatinine Ratio 15.7 (12.0-20.0); Calcium, Blood 8.7 mg/dL (8.5-10.1); Creatinine, Blood 0.76 mg/dL (0.60-1.20); Globulin, Blood 3.8 g/dL (2.2-4.0); Potassium, Blood 3.6 mmol/L (3.5-5.5); Total Protein, Blood 6.3 g/dL (6.4-8.2)
[2022-10-05 07:44] VITALS: BP 140/84
[2022-10-05] MEDS ORDERED: DOCU100 PO ×2 (07:58)
--- NOTE | 2022-10-05 15:37 | NUR ---
DISCHARGE SUMMARY: PT DISCHARGED TO HOME TODAY. PT DID COMPLAIN OF HEADACHE WITH AMBULATION. TYLENOL GIVEN AND EFFECTIVE. PT DID NOT HAVE IV IN PLACE THIS MORNING. PT EDUCATED ON DISCHARGE PLAN AND MEDICATIONS. PT VU. ASSISTED WITH PT PACKING BELONGINGS. PT TOOK CPAP MACHINE. PT ESCORTED TO POV VIA WC BY EMISSIONS ENGINEER. PT HAD FRIEND PICK HIM UP.
== END 2022-10-05 12:51 | disposition home or self-care (01) | DRG 372 ==
LOC: ER 11:03 → MEDS 11:04
PROVIDERS: Emergency Medicine; Family Medicine; Internal Medicine; Student in an Organized Health Care Education/Training Program; ADMIT Internal Medicine
PROC: 009U3ZZ Drainage of Spinal Canal, Percutaneous Approach (ICD-10-PCS; principal; 2022-10-02)
PROC: 5A09357 Assistance with Respiratory Ventilation, Less than 24 Consecutive Hours, Continuous Positive Airway Pressure (ICD-10-PCS; 2022-10-03)
DX: A04.5 Campylobacter enteritis (principal); M02.30 Reiter's disease, unspecified site; A04.1 Enterotoxigenic Escherichia coli infection; F90.9 Attention-deficit hyperactivity disorder, unspecified type; I10 Essential (primary) hypertension; K21.9 Gastro-esophageal reflux disease without esophagitis; E78.5 Hyperlipidemia, unspecified; G47.33 Obstructive sleep apnea (adult) (pediatric); M19.90 Unspecified osteoarthritis, unspecified site; B96.21 Shiga toxin-producing Escherichia coli [E. coli] [STEC] O157 as the cause of diseases classified elsewhere; R21 Rash and other nonspecific skin eruption; L52 Erythema nodosum; B34.9 Viral infection, unspecified; M54.9 Dorsalgia, unspecified; G89.29 Other chronic pain; M25.542 Pain in joints of left hand; M25.541 Pain in joints of right hand; D64.9 Anemia, unspecified; H53.149 Visual discomfort, unspecified; F41.8 Other specified anxiety disorders; G47.00 Insomnia, unspecified; Z20.822 Contact with and (suspected) exposure to COVID-19; Z96.651 Presence of right artificial knee joint; Z79.899 Other long term (current) drug therapy; Z79.891 Long term (current) use of opiate analgesic; Z79.82 Long term (current) use of aspirin; Z86.79 Personal history of other diseases of the circulatory system; Z88.8 Allergy status to other drugs, medicaments and biological substances; Z98.890 Other specified postprocedural states
CPT/HCPCS: 0202U; 36415; 62270; 70450; 71045; 74176; 80048; 80053; 81001; 82945; 83605; 83690; 84145; 84157; 85025; 85651; 86141; 86592; 86704; 86708; 86788; 86789; 86803; 87040; 87070; 87205; 87340; 87389; 87483; 87507; 89051; 94660; 94762; 96361-59; 96372; 96374-59; 96375; 96375-59; 96376; 96376-59; 97161; 99285-25; A9270; G0378; J1170; J1650; J1790; J1885; J2765; J3010; J7030

== ENCOUNTER → 2022-10-18 | Outpatient (CLI) | payer OTHER ==
[~2022-10-18] MED LIST changes: +METO10 PO; +NEURONTIN300 MG PO; +OXAYDO5 M1 PO
[2022-10-18 16:06] LABS: BASOPHILS ABSOLUTE AUTO 0.03 K/mm3 (0.00-0.23); BASOPHILS PERCENT AUTO 1 % (0-2); EOSINOPHILS ABSOLUTE AUTO 0.08 K/mm3 (0.00-0.68); EOSINOPHILS PERCENT AUTO 1 % (0-6); Hematocrit 39.9 % (37.0-53.0); Hemoglobin 12.8 g/dL (13.5-17.5); IMMATURE GRAN ABSOLUTE AUTO 0.01 K/mm3 (0.00-0.10); IMMATURE GRAN PERCENT AUTO 0 % (0-1); LYMPHOCYTES ABSOLUTE AUTO 1.52 K/mm3 (0.84-5.20); LYMPHOCYTES PERCENT AUTO 25 % (21-46); MONOCYTES ABSOLUTE AUTO 0.47 K/mm3 (0.16-1.47); MONOCYTES PERCENT AUTO 8 % (4-13); Mean Corpuscular HGB 30.3 pg (26.0-34.0); Mean Corpuscular HGB Conc 32.1 g/dL (31.5-36.5); Mean Corpuscular Volume 94 fL (80-100); Mean Platelet Volume 9.4 fL (9.1-12.4); NEUTROPHILS ABSOLUTE AUTO 3.97 K/mm3 (1.96-9.15); NEUTROPHILS PERCENT AUTO 65 % (41-73); Platelet Count 344 K/mm3 (150-400); RDW Coefficient Variation 13.7 % (11.7-14.2); RDW Standard Deviation 47.5 fL (35.1-46.3); Red Blood Cell Count 4.23 M/mm3 (4.30-5.90); White Blood Cell Count 6.08 K/mm3 (4.00-11.30)
[2022-10-18 16:52] LABS: C-REACTIVE PROTEIN, EXT RANGE <0.290 mg/dL (0.000-0.300); Uric Acid, Blood 5.1 mg/dL (3.5-7.2)
[2022-10-18 17:38] LABS: Alanine Aminotransfer (ALT/SGP 52 U/L (12-78); Albumin, Blood 3.6 g/dL (3.4-5.0); Alk Phos 101 U/L (50-136); Anion Gap 6 mmol/L (6-16); Aspartate Aminotrans (AST/SGOT 26 U/L (12-37); Bilirubin, Total 0.5 mg/dL (0.1-1.0); Blood Urea Nitrogen 15 mg/dL (8-24); CO2, Blood 26 mmol/L (21-32); Calcium, Blood 8.8 mg/dL (8.5-10.1); Chloride, Blood 107 mmol/L (98-108); Creatinine, Blood 0.79 mg/dL (0.60-1.20); Globulin, Blood 3.7 g/dL (2.2-4.0); Glomerular Filtration Rate 104 (60-); Glucose, Blood 94 mg/dL (70-99); Potassium, Blood 3.7 mmol/L (3.5-5.5); Sodium, Blood 139 mmol/L (136-145); Total Protein, Blood 7.3 g/dL (6.4-8.2)
[2022-10-22 18:09] LABS: A/G RATIO 1.1 (0.7-1.7); ALBUMIN 3.6 g/dL (2.9-4.4); ALPHA-1-GLOBULIN 0.3 g/dL (0.0-0.4); ALPHA-2-GLOBULIN 0.7 g/dL (0.4-1.0); BETA GLOBULIN 1.1 g/dL (0.7-1.3); GAMMA GLOBULIN 1.1 g/dL (0.4-1.8); GLOBULIN, TOTAL 3.2 g/dL (2.2-3.9); M-SPIKE Not Observed g/dL (Not Observed); PROTEIN, TOTAL, SERUM 6.8 g/dL (6.0-8.5)
== END ==
LOC: LAB 12:42 → LAB SHORT 12:42
PROVIDERS: Internal Medicine
DX: M06.4 Inflammatory polyarthropathy (principal); G64 Other disorders of peripheral nervous system
CPT/HCPCS: 36415; 80053; 82607; 82746; 84165; 84443; 84550; 85025; 85651; 86140; 86430

== ENCOUNTER → 2023-12-30 | Outpatient (CLI) | payer OTHER ==
[2024-01-02 18:05] LABS: AMPHETAMINE,URN,QUANT >5000 ng/mL; MDA,URN,QUANT <200 ng/mL; MDEA,URN,QUANT <200 ng/mL; MDMA,URN,QUANT <200 ng/mL; METHAMPHETAMINE,URN,QUANT <200 ng/mL; PHENTERMINE,URN,QUANT <200 ng/mL
== END | disposition home or self-care (01) ==
LOC: LAB SHORT 14:48 → LAB 14:48
PROVIDERS: Family Medicine
DX: Z51.81 Encounter for therapeutic drug level monitoring (principal); Z79.899 Other long term (current) drug therapy
CPT/HCPCS: G0480

== ENCOUNTER 2024-02-20 00:21 | Day surgery (SDC) | payer OTHER ==
[2024-02-20] MEDS ORDERED: CefTRIAXone Sodium 2,000 MG in NS 100 ML IV SCH (01:00)
[2024-02-20 13:29] VITALS: BP 152/84
== END 2024-02-20 14:00 | disposition home or self-care (01) ==
LOC: ATC 00:21
DX: T84.53XA Infection and inflammatory reaction due to internal right knee prosthesis, initial encounter (principal); M00.061 Staphylococcal arthritis, right knee; B95.7 Other staphylococcus as the cause of diseases classified elsewhere; Z79.899 Other long term (current) drug therapy; Z88.8 Allergy status to other drugs, medicaments and biological substances
CPT/HCPCS: 96365; J0696

== ENCOUNTER 2024-02-21 04:08 | Day surgery (SDC) | payer OTHER ==
[2024-02-21] MEDS ORDERED: CefTRIAXone Sodium 2,000 MG in NS 100 ML IV SCH (06:00)
[2024-02-21 09:28] VITALS: BP 128/84
== END 2024-02-21 09:50 | disposition home or self-care (01) ==
LOC: ATC 04:08
DX: T84.53XA Infection and inflammatory reaction due to internal right knee prosthesis, initial encounter (principal); Z79.899 Other long term (current) drug therapy; Z88.8 Allergy status to other drugs, medicaments and biological substances
CPT/HCPCS: 96365; J0696

== ENCOUNTER 2024-02-22 03:50 | Day surgery (SDC) | payer OTHER ==
[2024-02-22] MEDS ORDERED: CefTRIAXone Sodium 2,000 MG in NS 100 ML IV SCH (06:00)
[2024-02-22 09:24] VITALS: BP 133/80
== END 2024-02-22 09:49 | disposition home or self-care (01) ==
LOC: ATC 03:50
DX: T84.53XA Infection and inflammatory reaction due to internal right knee prosthesis, initial encounter (principal); Z79.82 Long term (current) use of aspirin; Z79.899 Other long term (current) drug therapy
CPT/HCPCS: 96365; J0696

== ENCOUNTER 2024-02-23 06:13 | Day surgery (SDC) | payer OTHER ==
[~2024-02-23 06:13] MED LIST changes: +CefTRIAXone Sodium 2,000 MG in NS 100 ML IV SCH
[2024-02-23 09:15] VITALS: BP 143/87
== END 2024-02-23 09:32 | disposition home or self-care (01) ==
LOC: ATC 06:13
DX: T84.7XXA Infection and inflammatory reaction due to other internal orthopedic prosthetic devices, implants and grafts, initial encounter (principal); Z79.899 Other long term (current) drug therapy; Y83.8 Other surgical procedures as the cause of abnormal reaction of the patient, or of later complication, without mention of misadventure at the time of the procedure
CPT/HCPCS: 96365; J0696

== ENCOUNTER 2024-02-24 01:16 | Day surgery (SDC) | payer OTHER ==
[2024-02-24 09:38] VITALS: BP 135/83
== END 2024-02-24 10:04 | disposition home or self-care (01) ==
LOC: ATC 01:16
DX: T84.53XA Infection and inflammatory reaction due to internal right knee prosthesis, initial encounter (principal); Z79.899 Other long term (current) drug therapy; Z88.8 Allergy status to other drugs, medicaments and biological substances
CPT/HCPCS: 96365; J0696

== ENCOUNTER 2024-02-25 04:17 | Day surgery (SDC) | payer OTHER ==
[~2024-02-25 04:17] MED LIST changes: -CefTRIAXone Sodium 2,000 MG in NS 100 ML IV SCH
[2024-02-25] MEDS ORDERED: CefTRIAXone Sodium 2,000 MG in NS 100 ML IV SCH (06:00)
[2024-02-25 09:46] VITALS: BP 152/86
[2024-02-25 10:38] LABS: BASOPHILS ABSOLUTE AUTO 0.03 K/mm3 (0.00-0.23); BASOPHILS PERCENT AUTO 0 % (0-2); EOSINOPHILS ABSOLUTE AUTO 0.25 K/mm3 (0.00-0.68); EOSINOPHILS PERCENT AUTO 4 % (0-6); Hematocrit 41.8 % (37.0-53.0); Hemoglobin 13.2 g/dL (13.5-17.5); IMMATURE GRAN ABSOLUTE AUTO 0.04 K/mm3 (0.00-0.10); IMMATURE GRAN PERCENT AUTO 1 % (0-1); LYMPHOCYTES ABSOLUTE AUTO 1.79 K/mm3 (0.84-5.20); LYMPHOCYTES PERCENT AUTO 27 % (21-46); MONOCYTES ABSOLUTE AUTO 0.41 K/mm3 (0.16-1.47); MONOCYTES PERCENT AUTO 6 % (4-13); Mean Corpuscular HGB 28.4 pg (26.0-34.0); Mean Corpuscular HGB Conc 31.6 g/dL (31.5-36.5); Mean Corpuscular Volume 90 fL (80-100); Mean Platelet Volume 9.4 fL (9.1-12.4); NEUTROPHILS ABSOLUTE AUTO 4.18 K/mm3 (1.96-9.15); NEUTROPHILS PERCENT AUTO 63 % (41-73); Platelet Count 386 K/mm3 (150-400); RDW Coefficient Variation 13.8 % (11.7-14.2); RDW Standard Deviation 45.7 fL (35.1-46.3); Red Blood Cell Count 4.64 M/mm3 (4.30-5.90)
[2024-02-25 11:06] LABS: Albumin, Blood 3.4 g/dL (3.4-5.0); Albumin/Globulin Ratio 0.8 (0.8-1.8); Bilirubin, Total 0.5 mg/dL (0.1-1.0); Bun/Creatinine Ratio 20.2 (12.0-20.0); C-REACTIVE PROTEIN, EXT RANGE 0.574 mg/dL (0.000-0.300); Calcium, Blood 9.6 mg/dL (8.5-10.1); Creatinine, Blood 0.89 mg/dL (0.60-1.20); Globulin, Blood 4.3 g/dL (2.2-4.0); Potassium, Blood 4.1 mmol/L (3.5-5.5); Total Protein, Blood 7.7 g/dL (6.4-8.2)
== END 2024-02-25 09:51 | disposition home or self-care (01) ==
LOC: ATC 04:17
PROVIDERS: Internal Medicine
DX: T84.53XA Infection and inflammatory reaction due to internal right knee prosthesis, initial encounter (principal); Z88.8 Allergy status to other drugs, medicaments and biological substances; Z79.899 Other long term (current) drug therapy
CPT/HCPCS: 80053; 85025; 85651; 86140; 96365; J0696

== ENCOUNTER 2024-02-26 04:00 | Day surgery (SDC) | payer OTHER ==
[~2024-02-26 04:00] MED LIST changes: +CefTRIAXone Sodium 2,000 MG in NS 100 ML IV SCH
[2024-02-26 09:07] VITALS: BP 118/94
== END 2024-02-26 09:25 | disposition home or self-care (01) ==
LOC: ATC 04:00
DX: T84.69XA Infection and inflammatory reaction due to internal fixation device of other site, initial encounter (principal); Z96.651 Presence of right artificial knee joint; Y83.8 Other surgical procedures as the cause of abnormal reaction of the patient, or of later complication, without mention of misadventure at the time of the procedure
CPT/HCPCS: 96374; J0696

== ENCOUNTER 2024-02-27 02:39 | Day surgery (SDC) | payer OTHER ==
[2024-02-27 07:24] VITALS: BP 148/96
== END 2024-02-27 07:47 | disposition home or self-care (01) ==
LOC: ATC 02:39
DX: T84.53XA Infection and inflammatory reaction due to internal right knee prosthesis, initial encounter (principal); Z79.899 Other long term (current) drug therapy; Z88.8 Allergy status to other drugs, medicaments and biological substances
CPT/HCPCS: 96365; J0696

== ENCOUNTER 2024-02-28 05:41 | Day surgery (SDC) | payer OTHER ==
[2024-02-28 09:22] VITALS: BP 138/78
== END 2024-02-28 09:43 | disposition home or self-care (01) ==
LOC: ATC 05:41
DX: T84.53XA Infection and inflammatory reaction due to internal right knee prosthesis, initial encounter (principal); Z88.8 Allergy status to other drugs, medicaments and biological substances; Z79.899 Other long term (current) drug therapy
CPT/HCPCS: 96365; J0696

== ENCOUNTER 2024-02-29 01:58 | Day surgery (SDC) | payer OTHER ==
[2024-02-29 09:21] VITALS: BP 146/85
== END 2024-02-29 09:38 | disposition home or self-care (01) ==
LOC: ATC 01:58
DX: T84.53XA Infection and inflammatory reaction due to internal right knee prosthesis, initial encounter (principal); Z79.82 Long term (current) use of aspirin; Z79.899 Other long term (current) drug therapy
CPT/HCPCS: 96365; J0696

== ENCOUNTER 2024-03-01 06:56 | Day surgery (SDC) | payer OTHER ==
[2024-03-01 09:37] VITALS: BP 140/87
== END 2024-03-01 09:52 | disposition home or self-care (01) ==
LOC: ATC 06:56
DX: T84.53XA Infection and inflammatory reaction due to internal right knee prosthesis, initial encounter (principal); Y79.3 Surgical instruments, materials and orthopedic devices (including sutures) associated with adverse incidents; Z79.82 Long term (current) use of aspirin; Z79.899 Other long term (current) drug therapy
CPT/HCPCS: 96365; J0696

== ENCOUNTER 2024-03-02 03:44 | Day surgery (SDC) | payer OTHER ==
[2024-03-02 09:27] VITALS: BP 133/89
== END 2024-03-02 09:51 | disposition home or self-care (01) ==
LOC: ATC 03:44
DX: T84.69XA Infection and inflammatory reaction due to internal fixation device of other site, initial encounter (principal); Y83.8 Other surgical procedures as the cause of abnormal reaction of the patient, or of later complication, without mention of misadventure at the time of the procedure
CPT/HCPCS: 96365; J0696

== ENCOUNTER 2024-03-03 03:09 | Day surgery (SDC) | payer OTHER ==
[~2024-03-03 03:09] MED LIST changes: -CefTRIAXone Sodium 2,000 MG in NS 100 ML IV SCH
[2024-03-03] MEDS ORDERED: CefTRIAXone Sodium 2,000 MG in NS 100 ML IV SCH (06:00)
[2024-03-03 11:24] VITALS: BP 134/84
[2024-03-03 12:29] LABS: BASOPHILS ABSOLUTE AUTO 0.04 K/mm3 (0.00-0.23); BASOPHILS PERCENT AUTO 1 % (0-2); EOSINOPHILS ABSOLUTE AUTO 0.25 K/mm3 (0.00-0.68); EOSINOPHILS PERCENT AUTO 3 % (0-6); Hematocrit 42.1 % (37.0-53.0); Hemoglobin 13.7 g/dL (13.5-17.5); IMMATURE GRAN ABSOLUTE AUTO 0.03 K/mm3 (0.00-0.10); IMMATURE GRAN PERCENT AUTO 0 % (0-1); LYMPHOCYTES ABSOLUTE AUTO 1.55 K/mm3 (0.84-5.20); LYMPHOCYTES PERCENT AUTO 21 % (21-46); MONOCYTES ABSOLUTE AUTO 0.53 K/mm3 (0.16-1.47); MONOCYTES PERCENT AUTO 7 % (4-13); Mean Corpuscular HGB 29.2 pg (26.0-34.0); Mean Corpuscular HGB Conc 32.5 g/dL (31.5-36.5); Mean Corpuscular Volume 90 fL (80-100); Mean Platelet Volume 9.9 fL (9.1-12.4); NEUTROPHILS ABSOLUTE AUTO 4.94 K/mm3 (1.96-9.15); NEUTROPHILS PERCENT AUTO 67 % (41-73); Platelet Count 276 K/mm3 (150-400); RDW Coefficient Variation 14.1 % (11.7-14.2); RDW Standard Deviation 46.4 fL (35.1-46.3); Red Blood Cell Count 4.69 M/mm3 (4.30-5.90); White Blood Cell Count 7.34 K/mm3 (4.00-11.30)
[2024-03-03 13:33] LABS: Alanine Aminotransfer (ALT/SGP 38 U/L (12-78); Albumin, Blood 3.7 g/dL (3.4-5.0); Albumin/Globulin Ratio 0.9 (0.8-1.8); Alk Phos 118 U/L (50-136); Anion Gap 10 mmol/L (3-11); Aspartate Aminotrans (AST/SGOT 21 U/L (12-37); Bilirubin, Total 0.8 mg/dL (0.1-1.0); Blood Urea Nitrogen 14 mg/dL (8-24); Bun/Creatinine Ratio 14.7 (12.0-20.0); C-REACTIVE PROTEIN, EXT RANGE <0.290 mg/dL (0.000-0.300); CO2, Blood 25 mmol/L (21-32); Calcium, Blood 9.7 mg/dL (8.5-10.1); Chloride, Blood 108 mmol/L (98-108); Creatinine, Blood 0.95 mg/dL (0.60-1.20); Glomerular Filtration Rate 93 (60-); Glucose, Blood 99 mg/dL (70-99); Potassium, Blood 3.9 mmol/L (3.5-5.5); Sodium, Blood 139 mmol/L (136-145); Total Protein, Blood 7.7 g/dL (6.4-8.2)
== END 2024-03-03 11:37 | disposition home or self-care (01) ==
LOC: ATC 03:09
PROVIDERS: Internal Medicine
DX: T84.53XA Infection and inflammatory reaction due to internal right knee prosthesis, initial encounter (principal); Z79.899 Other long term (current) drug therapy; Z88.8 Allergy status to other drugs, medicaments and biological substances
CPT/HCPCS: 80053; 85025; 85651; 86140; 96365; J0696

== ENCOUNTER 2024-03-04 03:36 | Day surgery (SDC) | payer OTHER ==
[2024-03-04] MEDS ORDERED: CefTRIAXone Sodium 2,000 MG in NS 100 ML IV SCH (06:00)
[2024-03-04 09:30] VITALS: BP 142/85
== END 2024-03-04 09:50 | disposition home or self-care (01) ==
LOC: ATC 03:36
DX: T84.53XA Infection and inflammatory reaction due to internal right knee prosthesis, initial encounter (principal); Y79.3 Surgical instruments, materials and orthopedic devices (including sutures) associated with adverse incidents; Z79.82 Long term (current) use of aspirin; Z79.899 Other long term (current) drug therapy
CPT/HCPCS: 96365; J0696

== ENCOUNTER 2024-03-05 02:37 | Day surgery (SDC) | payer OTHER ==
[~2024-03-05 02:37] MED LIST changes: +CefTRIAXone Sodium 2,000 MG in NS 100 ML IV SCH
[2024-03-05 09:29] VITALS: BP 133/90
== END 2024-03-05 09:47 | disposition home or self-care (01) ==
LOC: ATC 02:37
DX: T84.53XA Infection and inflammatory reaction due to internal right knee prosthesis, initial encounter (principal); Y79.2 Prosthetic and other implants, materials and accessory orthopedic devices associated with adverse incidents; Z79.899 Other long term (current) drug therapy
CPT/HCPCS: 96365; J0696

== ENCOUNTER 2024-03-06 00:53 | Day surgery (SDC) | payer OTHER ==
[~2024-03-06 00:53] MED LIST changes: -CefTRIAXone Sodium 2,000 MG in NS 100 ML IV SCH
[2024-03-06] MEDS ORDERED: CefTRIAXone Sodium 2,000 MG in NS 100 ML IV SCH (06:00)
[2024-03-06 09:29] VITALS: BP 140/83
== END 2024-03-06 09:55 | disposition home or self-care (01) ==
LOC: ATC 00:53
DX: T84.69XA Infection and inflammatory reaction due to internal fixation device of other site, initial encounter (principal); Y83.8 Other surgical procedures as the cause of abnormal reaction of the patient, or of later complication, without mention of misadventure at the time of the procedure; Z79.899 Other long term (current) drug therapy
CPT/HCPCS: 96365; J0696

== ENCOUNTER 2024-03-07 06:43 | Day surgery (SDC) | payer OTHER ==
[~2024-03-07 06:43] MED LIST changes: +CefTRIAXone Sodium 2,000 MG in NS 100 ML IV SCH
[2024-03-07 09:40] VITALS: BP 144/88
== END 2024-03-07 09:54 | disposition home or self-care (01) ==
LOC: ATC 06:43
DX: T84.53XA Infection and inflammatory reaction due to internal right knee prosthesis, initial encounter (principal); Z79.899 Other long term (current) drug therapy; Z88.8 Allergy status to other drugs, medicaments and biological substances
CPT/HCPCS: 96365; J0696

== ENCOUNTER 2024-03-08 02:35 | Day surgery (SDC) | payer OTHER ==
[2024-03-08 09:25] VITALS: BP 164/89
== END 2024-03-08 09:50 | disposition home or self-care (01) ==
LOC: ATC 02:35
DX: T84.53XA Infection and inflammatory reaction due to internal right knee prosthesis, initial encounter (principal); Z79.899 Other long term (current) drug therapy; Z88.8 Allergy status to other drugs, medicaments and biological substances
CPT/HCPCS: 96365; J0696

== ENCOUNTER 2024-03-09 04:26 | Day surgery (SDC) | payer OTHER ==
[~2024-03-09 04:26] MED LIST changes: -CefTRIAXone Sodium 2,000 MG in NS 100 ML IV SCH
[2024-03-09] MEDS ORDERED: CefTRIAXone Sodium 2,000 MG in NS 100 ML IV SCH (06:00)
[2024-03-09 09:47] VITALS: BP 169/96
== END 2024-03-09 09:48 | disposition home or self-care (01) ==
LOC: ATC 04:26
DX: T84.53XA Infection and inflammatory reaction due to internal right knee prosthesis, initial encounter (principal); Z79.899 Other long term (current) drug therapy; Z88.8 Allergy status to other drugs, medicaments and biological substances
CPT/HCPCS: 96365; J0696

== ENCOUNTER 2024-03-10 04:54 | Day surgery (SDC) | payer OTHER ==
[2024-03-10] MEDS ORDERED: CefTRIAXone Sodium 2,000 MG in NS 100 ML IV SCH (06:00)
[2024-03-10 09:23] VITALS: BP 139/87
[2024-03-10 10:08] LABS: BASOPHILS ABSOLUTE AUTO 0.04 K/mm3 (0.00-0.23); BASOPHILS PERCENT AUTO 1 % (0-2); EOSINOPHILS ABSOLUTE AUTO 0.72 K/mm3 (0.00-0.68); EOSINOPHILS PERCENT AUTO 9 % (0-6); Hematocrit 43.6 % (37.0-53.0); Hemoglobin 14.1 g/dL (13.5-17.5); IMMATURE GRAN ABSOLUTE AUTO 0.02 K/mm3 (0.00-0.10); IMMATURE GRAN PERCENT AUTO 0 % (0-1); LYMPHOCYTES PERCENT AUTO 25 % (21-46); MONOCYTES ABSOLUTE AUTO 0.51 K/mm3 (0.16-1.47); MONOCYTES PERCENT AUTO 6 % (4-13); Mean Corpuscular HGB 29.3 pg (26.0-34.0); Mean Corpuscular HGB Conc 32.3 g/dL (31.5-36.5); Mean Corpuscular Volume 91 fL (80-100); Mean Platelet Volume 9.7 fL (9.1-12.4); NEUTROPHILS ABSOLUTE AUTO 4.64 K/mm3 (1.96-9.15); NEUTROPHILS PERCENT AUTO 59 % (41-73); Platelet Count 208 K/mm3 (150-400); RDW Coefficient Variation 14.2 % (11.7-14.2); RDW Standard Deviation 47.3 fL (35.1-46.3); Red Blood Cell Count 4.82 M/mm3 (4.30-5.90); White Blood Cell Count 7.93 K/mm3 (4.00-11.30)
[2024-03-10 10:29] LABS: Alanine Aminotransfer (ALT/SGP 33 U/L (12-78); Albumin, Blood 3.6 g/dL (3.4-5.0); Albumin/Globulin Ratio 0.9 (0.8-1.8); Alk Phos 117 U/L (50-136); Anion Gap 9 mmol/L (3-11); Aspartate Aminotrans (AST/SGOT 19 U/L (12-37); Bilirubin, Total 0.6 mg/dL (0.1-1.0); Blood Urea Nitrogen 19 mg/dL (8-24); Bun/Creatinine Ratio 19.3 (12.0-20.0); C-REACTIVE PROTEIN, EXT RANGE <0.290 mg/dL (0.000-0.300); CO2, Blood 28 mmol/L (21-32); Calcium, Blood 9.4 mg/dL (8.5-10.1); Chloride, Blood 107 mmol/L (98-108); Creatinine, Blood 0.99 mg/dL (0.60-1.20); Globulin, Blood 4.1 g/dL (2.2-4.0); Glomerular Filtration Rate 88 (60-); Glucose, Blood 141 mg/dL (70-99); Sodium, Blood 140 mmol/L (136-145); Total Protein, Blood 7.7 g/dL (6.4-8.2)
== END 2024-03-10 09:53 | disposition home or self-care (01) ==
LOC: ATC 04:54
PROVIDERS: Internal Medicine
DX: T84.53XA Infection and inflammatory reaction due to internal right knee prosthesis, initial encounter (principal); Z79.899 Other long term (current) drug therapy; Z88.8 Allergy status to other drugs, medicaments and biological substances
CPT/HCPCS: 80053; 85025; 85651; 86140; 96365; J0696

== ENCOUNTER 2024-03-11 04:58 | Day surgery (SDC) | payer OTHER ==
[~2024-03-11 04:58] MED LIST changes: +CefTRIAXone Sodium 2,000 MG in NS 100 ML IV SCH
[2024-03-11 09:19] VITALS: BP 147/88
== END 2024-03-11 09:40 | disposition home or self-care (01) ==
LOC: ATC 04:58
DX: T84.53XA Infection and inflammatory reaction due to internal right knee prosthesis, initial encounter (principal); Y79.2 Prosthetic and other implants, materials and accessory orthopedic devices associated with adverse incidents; Z79.82 Long term (current) use of aspirin; Z79.899 Other long term (current) drug therapy
CPT/HCPCS: 96365; J0696

== ENCOUNTER 2024-03-12 06:01 | Day surgery (SDC) | payer OTHER ==
[2024-03-12 09:36] VITALS: BP 156/95
== END 2024-03-12 10:01 | disposition home or self-care (01) ==
LOC: ATC 06:01
DX: T84.53XA Infection and inflammatory reaction due to internal right knee prosthesis, initial encounter (principal); Y79.2 Prosthetic and other implants, materials and accessory orthopedic devices associated with adverse incidents; Z79.82 Long term (current) use of aspirin; Z79.899 Other long term (current) drug therapy
CPT/HCPCS: 96365; J0696

== ENCOUNTER 2024-03-13 06:16 | Day surgery (SDC) | payer OTHER ==
[2024-03-13 09:32] VITALS: BP 129/95
== END 2024-03-13 10:03 | disposition home or self-care (01) ==
LOC: ATC 06:16
DX: T84.53XA Infection and inflammatory reaction due to internal right knee prosthesis, initial encounter (principal); Y83.8 Other surgical procedures as the cause of abnormal reaction of the patient, or of later complication, without mention of misadventure at the time of the procedure
CPT/HCPCS: 96365; J0696

== ENCOUNTER 2024-03-14 01:22 | Day surgery (SDC) | payer OTHER ==
[2024-03-14 09:28] VITALS: BP 147/85
== END 2024-03-14 09:47 | disposition home or self-care (01) ==
LOC: ATC 01:22
DX: T84.53XA Infection and inflammatory reaction due to internal right knee prosthesis, initial encounter (principal); Y79.2 Prosthetic and other implants, materials and accessory orthopedic devices associated with adverse incidents; Z79.82 Long term (current) use of aspirin; Z79.899 Other long term (current) drug therapy
CPT/HCPCS: 96365; J0696

== ENCOUNTER 2024-03-15 09:12 | Day surgery (SDC) | payer OTHER ==
[2024-03-15 09:40] VITALS: BP 127/85
== END 2024-03-15 09:57 | disposition home or self-care (01) ==
LOC: ATC 09:12
DX: T84.69XA Infection and inflammatory reaction due to internal fixation device of other site, initial encounter (principal); Y83.8 Other surgical procedures as the cause of abnormal reaction of the patient, or of later complication, without mention of misadventure at the time of the procedure
CPT/HCPCS: 96365; J0696

== ENCOUNTER 2024-03-16 03:05 | Day surgery (SDC) | payer OTHER ==
[~2024-03-16 03:05] MED LIST changes: -CefTRIAXone Sodium 2,000 MG in NS 100 ML IV SCH
[2024-03-16] MEDS ORDERED: CefTRIAXone Sodium 2,000 MG in NS 100 ML IV SCH (06:00)
[2024-03-16 09:21] VITALS: BP 131/86
== END 2024-03-16 09:43 | disposition home or self-care (01) ==
LOC: ATC 03:05
DX: T84.7XXA Infection and inflammatory reaction due to other internal orthopedic prosthetic devices, implants and grafts, initial encounter (principal); Y83.8 Other surgical procedures as the cause of abnormal reaction of the patient, or of later complication, without mention of misadventure at the time of the procedure
CPT/HCPCS: 96365; J0696

== ENCOUNTER 2024-03-17 03:59 | Day surgery (SDC) | payer OTHER ==
[~2024-03-17 03:59] MED LIST changes: +CefTRIAXone Sodium 2,000 MG in NS 100 ML IV SCH
[2024-03-17 09:43] VITALS: BP 138/81
[2024-03-17] MEDS ORDERED: Alteplase Recombinant 2 MG / Vial IV PRN (09:45)
[2024-03-17 11:51] LABS: BASOPHILS ABSOLUTE AUTO 0.03 K/mm3 (0.00-0.23); BASOPHILS PERCENT AUTO 1 % (0-2); EOSINOPHILS ABSOLUTE AUTO 0.46 K/mm3 (0.00-0.68); EOSINOPHILS PERCENT AUTO 8 % (0-6); Hematocrit 42.9 % (37.0-53.0); Hemoglobin 14.1 g/dL (13.5-17.5); IMMATURE GRAN ABSOLUTE AUTO 0.03 K/mm3 (0.00-0.10); IMMATURE GRAN PERCENT AUTO 1 % (0-1); LYMPHOCYTES ABSOLUTE AUTO 1.65 K/mm3 (0.84-5.20); LYMPHOCYTES PERCENT AUTO 27 % (21-46); MONOCYTES ABSOLUTE AUTO 0.37 K/mm3 (0.16-1.47); MONOCYTES PERCENT AUTO 6 % (4-13); Mean Corpuscular HGB Conc 32.9 g/dL (31.5-36.5); Mean Corpuscular Volume 88 fL (80-100); Mean Platelet Volume 9.9 fL (9.1-12.4); NEUTROPHILS ABSOLUTE AUTO 3.52 K/mm3 (1.96-9.15); NEUTROPHILS PERCENT AUTO 58 % (41-73); Platelet Count 203 K/mm3 (150-400); RDW Coefficient Variation 14.1 % (11.7-14.2); RDW Standard Deviation 45.8 fL (35.1-46.3); Red Blood Cell Count 4.86 M/mm3 (4.30-5.90); White Blood Cell Count 6.06 K/mm3 (4.00-11.30)
[2024-03-17 12:14] LABS: C-REACTIVE PROTEIN, EXT RANGE <0.290 mg/dL (0.000-0.300)
[2024-03-17 12:15] LABS: Alanine Aminotransfer (ALT/SGP 33 U/L (12-78); Albumin, Blood 3.5 g/dL (3.4-5.0); Albumin/Globulin Ratio 0.9 (0.8-1.8); Alk Phos 108 U/L (50-136); Anion Gap 9 mmol/L (3-11); Aspartate Aminotrans (AST/SGOT 20 U/L (12-37); Bilirubin, Total 0.6 mg/dL (0.1-1.0); Blood Urea Nitrogen 19 mg/dL (8-24); Bun/Creatinine Ratio 23.3 (12.0-20.0); CO2, Blood 27 mmol/L (21-32); Calcium, Blood 9.3 mg/dL (8.5-10.1); Chloride, Blood 105 mmol/L (98-108); Creatinine, Blood 0.82 mg/dL (0.60-1.20); Globulin, Blood 3.9 g/dL (2.2-4.0); Glomerular Filtration Rate 102 (60-); Glucose, Blood 102 mg/dL (70-99); Sodium, Blood 137 mmol/L (136-145); Total Protein, Blood 7.4 g/dL (6.4-8.2)
== END 2024-03-17 10:49 | disposition home or self-care (01) ==
LOC: ATC 03:59
PROVIDERS: Internal Medicine
DX: T84.69XA Infection and inflammatory reaction due to internal fixation device of other site, initial encounter (principal); Z79.899 Other long term (current) drug therapy; Y83.8 Other surgical procedures as the cause of abnormal reaction of the patient, or of later complication, without mention of misadventure at the time of the procedure
CPT/HCPCS: 36593; 80053; 85025; 85651; 86140; 96365; J0696; J2997

== ENCOUNTER 2024-03-18 09:31 | Day surgery (SDC) | payer OTHER ==
[2024-03-18 09:47] VITALS: BP 129/78
== END 2024-03-18 10:08 | disposition home or self-care (01) ==
LOC: ATC 09:31
DX: T84.69XA Infection and inflammatory reaction due to internal fixation device of other site, initial encounter (principal); Z79.899 Other long term (current) drug therapy
CPT/HCPCS: 96365; J0696

== ENCOUNTER 2024-03-19 00:51 | Day surgery (SDC) | payer OTHER ==
[~2024-03-19 00:51] MED LIST changes: -CefTRIAXone Sodium 2,000 MG in NS 100 ML IV SCH
[2024-03-19] MEDS ORDERED: CefTRIAXone Sodium 2,000 MG in NS 100 ML IV SCH (06:00)
[2024-03-19 09:25] VITALS: BP 129/86
== END 2024-03-19 11:18 | disposition home or self-care (01) ==
LOC: ATC 00:51
DX: T84.69XA Infection and inflammatory reaction due to internal fixation device of other site, initial encounter (principal)
CPT/HCPCS: 96365; J0696

== ENCOUNTER 2024-03-20 06:53 | Day surgery (SDC) | payer OTHER ==
[~2024-03-20 06:53] MED LIST changes: +CefTRIAXone Sodium 2,000 MG in NS 100 ML IV SCH
[2024-03-20 09:42] VITALS: BP 147/73
== END 2024-03-20 10:05 | disposition home or self-care (01) ==
LOC: ATC 06:53
DX: T84.53XA Infection and inflammatory reaction due to internal right knee prosthesis, initial encounter (principal); Z88.8 Allergy status to other drugs, medicaments and biological substances; Z79.899 Other long term (current) drug therapy
CPT/HCPCS: 96365; J0696

== ENCOUNTER 2024-03-21 09:16 | Day surgery (SDC) | payer OTHER ==
[2024-03-21 09:20] VITALS: BP 138/88
== END 2024-03-21 09:44 | disposition home or self-care (01) ==
LOC: ATC 09:16
DX: T84.53XA Infection and inflammatory reaction due to internal right knee prosthesis, initial encounter (principal); Z79.899 Other long term (current) drug therapy; Z88.8 Allergy status to other drugs, medicaments and biological substances
CPT/HCPCS: 96365; J0696

== ENCOUNTER 2024-03-22 09:24 | Day surgery (SDC) | payer OTHER ==
[2024-03-22 09:34] VITALS: BP 137/81
== END 2024-03-22 09:52 | disposition home or self-care (01) ==
LOC: ATC 09:24
DX: T84.53XA Infection and inflammatory reaction due to internal right knee prosthesis, initial encounter (principal); Y79.2 Prosthetic and other implants, materials and accessory orthopedic devices associated with adverse incidents; Z79.899 Other long term (current) drug therapy
CPT/HCPCS: 96365; J0696

== ENCOUNTER 2024-03-23 09:14 | Day surgery (SDC) | payer OTHER ==
[2024-03-23 09:19] VITALS: BP 139/79
== END 2024-03-23 09:39 | disposition home or self-care (01) ==
LOC: ATC 09:14
DX: T84.53XA Infection and inflammatory reaction due to internal right knee prosthesis, initial encounter (principal); Z79.82 Long term (current) use of aspirin; Z79.899 Other long term (current) drug therapy
CPT/HCPCS: 96365; J0696

== ENCOUNTER 2024-03-24 01:10 | Day surgery (SDC) | payer OTHER ==
[2024-03-24 09:46] VITALS: BP 138/86
== END 2024-03-24 10:08 | disposition home or self-care (01) ==
LOC: ATC 01:10
DX: T84.69XA Infection and inflammatory reaction due to internal fixation device of other site, initial encounter (principal); Z79.899 Other long term (current) drug therapy
CPT/HCPCS: 96365; J0696

== ENCOUNTER 2024-03-25 05:32 | Day surgery (SDC) | payer OTHER ==
[~2024-03-25 05:32] MED LIST changes: -CefTRIAXone Sodium 2,000 MG in NS 100 ML IV SCH
== END 2024-03-25 09:10 | disposition home or self-care (01) ==
LOC: ATC 05:32
DX: Z45.2 Encounter for adjustment and management of vascular access device (principal); T84.53XD Infection and inflammatory reaction due to internal right knee prosthesis, subsequent encounter
CPT/HCPCS: 99211

== ENCOUNTER → 2024-05-16 | Outpatient (CLI) | payer OTHER | LOC: LAB 11:02 → LAB SHORT 11:02 | DX: T81.9XXA Unspecified complication of procedure, initial encounter (principal) | CPT/HCPCS: 87070; 87205 ==

== ENCOUNTER 2024-08-01 04:51 | Day surgery (SDC) | payer OTHER ==
[2024-08-01] MEDS ORDERED: DAPTOmycin 600 MG in NS 50 ML IV SCH (06:00)
[2024-08-01 17:23] VITALS: BP 125/74
[2024-08-01] MEDS ORDERED: CUBICIN RF500 M1 IV (17:23)
== END 2024-08-01 17:38 | disposition home or self-care (01) ==
LOC: ATC 04:51
DX: T84.69XA Infection and inflammatory reaction due to internal fixation device of other site, initial encounter (principal); I10 Essential (primary) hypertension; G47.30 Sleep apnea, unspecified; Z79.899 Other long term (current) drug therapy; Z79.82 Long term (current) use of aspirin; Z88.8 Allergy status to other drugs, medicaments and biological substances; Y83.8 Other surgical procedures as the cause of abnormal reaction of the patient, or of later complication, without mention of misadventure at the time of the procedure
CPT/HCPCS: 96365; J0878

== ENCOUNTER 2024-08-02 00:26 | Day surgery (SDC) | payer OTHER ==
[~2024-08-02 00:26] MED LIST changes: +CUBICIN RF500 M1 IV
[2024-08-02] MEDS ORDERED: DAPTOmycin 600 MG in NS 50 ML IV SCH (06:00)
[2024-08-02 17:04] VITALS: BP 112/67
== END 2024-08-02 17:22 | disposition home or self-care (01) ==
LOC: ATC 00:26
DX: T84.53XA Infection and inflammatory reaction due to internal right knee prosthesis, initial encounter (principal); I47.10 Supraventricular tachycardia, unspecified; I10 Essential (primary) hypertension; G47.30 Sleep apnea, unspecified; Z79.82 Long term (current) use of aspirin; Z79.899 Other long term (current) drug therapy; Z88.1 Allergy status to other antibiotic agents; Z96.642 Presence of left artificial hip joint; Y79.2 Prosthetic and other implants, materials and accessory orthopedic devices associated with adverse incidents
CPT/HCPCS: 96365; J0878

== ENCOUNTER 2024-08-03 04:19 | Day surgery (SDC) | payer OTHER ==
[2024-08-03] MEDS ORDERED: DAPTOmycin 600 MG in NS 50 ML IV SCH (06:00)
[2024-08-03 16:08] VITALS: BP 121/69
== END 2024-08-03 17:07 | disposition home or self-care (01) ==
LOC: ATC 04:19
DX: T84.53XA Infection and inflammatory reaction due to internal right knee prosthesis, initial encounter (principal); Y79.2 Prosthetic and other implants, materials and accessory orthopedic devices associated with adverse incidents; I10 Essential (primary) hypertension; G47.30 Sleep apnea, unspecified; Z88.8 Allergy status to other drugs, medicaments and biological substances; Z79.82 Long term (current) use of aspirin; Z79.899 Other long term (current) drug therapy
CPT/HCPCS: 96365; J0878

== ENCOUNTER 2024-08-04 02:40 | Day surgery (SDC) | payer OTHER ==
[2024-08-04] MEDS ORDERED: DAPTOmycin 600 MG in NS 50 ML IV SCH (06:00)
[2024-08-04 16:29] VITALS: BP 113/77
== END 2024-08-04 16:50 | disposition home or self-care (01) ==
LOC: ATC 02:40
DX: T84.53XA Infection and inflammatory reaction due to internal right knee prosthesis, initial encounter (principal); M00.061 Staphylococcal arthritis, right knee; B95.7 Other staphylococcus as the cause of diseases classified elsewhere; I47.10 Supraventricular tachycardia, unspecified; I10 Essential (primary) hypertension; G47.30 Sleep apnea, unspecified; Z79.82 Long term (current) use of aspirin; Z79.899 Other long term (current) drug therapy; Z88.8 Allergy status to other drugs, medicaments and biological substances; Z96.642 Presence of left artificial hip joint; Y79.2 Prosthetic and other implants, materials and accessory orthopedic devices associated with adverse incidents
CPT/HCPCS: 96365; J0878

== ENCOUNTER 2024-08-05 02:54 | Day surgery (SDC) | payer OTHER ==
[2024-08-05] MEDS ORDERED: DAPTOmycin 600 MG in NS 50 ML IV SCH (06:00)
[2024-08-05 13:28] VITALS: BP 126/66
== END 2024-08-05 13:49 | disposition home or self-care (01) ==
LOC: ATC 02:54
DX: T84.69XA Infection and inflammatory reaction due to internal fixation device of other site, initial encounter (principal); I10 Essential (primary) hypertension; G47.30 Sleep apnea, unspecified; Z99.89 Dependence on other enabling machines and devices; Y83.8 Other surgical procedures as the cause of abnormal reaction of the patient, or of later complication, without mention of misadventure at the time of the procedure
CPT/HCPCS: 96365; J0878

== ENCOUNTER 2024-08-06 02:22 | Day surgery (SDC) | payer OTHER ==
[2024-08-06] MEDS ORDERED: DAPTOmycin 600 MG in NS 50 ML IV SCH (06:00)
[2024-08-06 13:29] VITALS: BP 140/70
== END 2024-08-06 13:48 | disposition home or self-care (01) ==
LOC: ATC 02:22
DX: T84.53XA Infection and inflammatory reaction due to internal right knee prosthesis, initial encounter (principal); Y79.3 Surgical instruments, materials and orthopedic devices (including sutures) associated with adverse incidents; I10 Essential (primary) hypertension; G47.30 Sleep apnea, unspecified; Z88.1 Allergy status to other antibiotic agents; Z88.8 Allergy status to other drugs, medicaments and biological substances; Z79.899 Other long term (current) drug therapy
CPT/HCPCS: 96365; J0878

== ENCOUNTER 2024-08-07 03:59 | Day surgery (SDC) | payer OTHER ==
[2024-08-07] MEDS ORDERED: DAPTOmycin 600 MG in NS 50 ML IV SCH (06:00)
[2024-08-07 13:31] VITALS: BP 130/78
[2024-08-07 15:01] LABS: BASOPHILS ABSOLUTE AUTO 0.03 K/mm3 (0.00-0.23); BASOPHILS PERCENT AUTO 0 % (0-2); EOSINOPHILS ABSOLUTE AUTO 0.32 K/mm3 (0.00-0.68); EOSINOPHILS PERCENT AUTO 4 % (0-6); Hematocrit 37.3 % (37.0-53.0); Hemoglobin 11.9 g/dL (13.5-17.5); IMMATURE GRAN ABSOLUTE AUTO 0.02 K/mm3 (0.00-0.10); IMMATURE GRAN PERCENT AUTO 0 % (0-1); LYMPHOCYTES PERCENT AUTO 16 % (21-46); MONOCYTES ABSOLUTE AUTO 0.41 K/mm3 (0.16-1.47); MONOCYTES PERCENT AUTO 5 % (4-13); Mean Corpuscular HGB 28.8 pg (26.0-34.0); Mean Corpuscular HGB Conc 31.9 g/dL (31.5-36.5); Mean Corpuscular Volume 90 fL (80-100); Mean Platelet Volume 9.4 fL (9.1-12.4); NEUTROPHILS ABSOLUTE AUTO 5.91 K/mm3 (1.96-9.15); NEUTROPHILS PERCENT AUTO 74 % (41-73); Platelet Count 319 K/mm3 (150-400); RDW Coefficient Variation 13.5 % (11.7-14.2); RDW Standard Deviation 44.5 fL (35.1-46.3); Red Blood Cell Count 4.13 M/mm3 (4.30-5.90); White Blood Cell Count 7.99 K/mm3 (4.00-11.30)
[2024-08-07 15:37] LABS: Alanine Aminotransfer (ALT/SGP 23 U/L (12-78); Albumin, Blood 3.4 g/dL (3.4-5.0); Albumin/Globulin Ratio 0.9 (0.8-1.8); Alk Phos 124 U/L (50-136); Anion Gap 9 mmol/L (3-11); Aspartate Aminotrans (AST/SGOT 16 U/L (12-37); Bilirubin, Total 0.4 mg/dL (0.1-1.0); Blood Urea Nitrogen 16 mg/dL (8-24); Bun/Creatinine Ratio 18.7 (12.0-20.0); C-REACTIVE PROTEIN, EXT RANGE <0.290 mg/dL (0.000-0.300); CO2, Blood 27 mmol/L (21-32); Calcium, Blood 9.1 mg/dL (8.5-10.1); Chloride, Blood 106 mmol/L (98-108); Creatinine, Blood 0.86 mg/dL (0.60-1.20); Globulin, Blood 3.9 g/dL (2.2-4.0); Glomerular Filtration Rate 100 (60-); Glucose, Blood 114 mg/dL (70-99); Potassium, Blood 3.9 mmol/L (3.5-5.5); Sodium, Blood 138 mmol/L (136-145); Total Protein, Blood 7.3 g/dL (6.4-8.2)
== END 2024-08-07 13:55 | disposition home or self-care (01) ==
LOC: ATC 03:59
PROVIDERS: Internal Medicine
DX: T84.629A Infection and inflammatory reaction due to internal fixation device of unspecified bone of leg, initial encounter (principal); I10 Essential (primary) hypertension; Y83.8 Other surgical procedures as the cause of abnormal reaction of the patient, or of later complication, without mention of misadventure at the time of the procedure; Z79.82 Long term (current) use of aspirin; Z88.8 Allergy status to other drugs, medicaments and biological substances
CPT/HCPCS: 80053; 82550; 85025; 85651; 86140; 96365; J0878

== ENCOUNTER 2024-08-08 13:19 | Day surgery (SDC) | payer OTHER ==
[~2024-08-08 13:19] MED LIST changes: +DAPTOmycin 600 MG in NS 50 ML IV SCH
[2024-08-08 13:26] VITALS: BP 128/74
[2024-08-09] MEDS ORDERED: DAPTOmycin 600 MG in NS 50 ML IV SCH (06:00)
== END 2024-08-08 13:51 | disposition home or self-care (01) ==
LOC: ATC 13:19
DX: T84.53XA Infection and inflammatory reaction due to internal right knee prosthesis, initial encounter (principal); Y79.2 Prosthetic and other implants, materials and accessory orthopedic devices associated with adverse incidents; I10 Essential (primary) hypertension; G47.30 Sleep apnea, unspecified; Z88.1 Allergy status to other antibiotic agents; Z79.82 Long term (current) use of aspirin; Z79.899 Other long term (current) drug therapy
CPT/HCPCS: 96365; J0878

== ENCOUNTER 2024-08-09 03:46 | Day surgery (SDC) | payer OTHER ==
[~2024-08-09 03:46] MED LIST changes: -DAPTOmycin 600 MG in NS 50 ML IV SCH
[2024-08-09] MEDS ORDERED: DAPTOmycin 600 MG in NS 50 ML IV SCH (06:00)
[2024-08-09 13:27] VITALS: BP 135/74
== END 2024-08-09 13:48 | disposition home or self-care (01) ==
LOC: ATC 03:46
DX: T84.53XA Infection and inflammatory reaction due to internal right knee prosthesis, initial encounter (principal); Y79.2 Prosthetic and other implants, materials and accessory orthopedic devices associated with adverse incidents; I10 Essential (primary) hypertension; G47.30 Sleep apnea, unspecified; Z88.1 Allergy status to other antibiotic agents; Z79.82 Long term (current) use of aspirin; Z79.899 Other long term (current) drug therapy
CPT/HCPCS: 96365; J0878

== ENCOUNTER 2024-08-10 00:46 | Day surgery (SDC) | payer OTHER ==
[2024-08-10] MEDS ORDERED: DAPTOmycin 600 MG in NS 50 ML IV SCH (06:00)
[2024-08-10 13:31] VITALS: BP 142/82
== END 2024-08-10 13:54 | disposition home or self-care (01) ==
LOC: ATC 00:46
DX: T84.53XA Infection and inflammatory reaction due to internal right knee prosthesis, initial encounter (principal); B95.7 Other staphylococcus as the cause of diseases classified elsewhere; B96.89 Other specified bacterial agents as the cause of diseases classified elsewhere; I47.10 Supraventricular tachycardia, unspecified; I10 Essential (primary) hypertension; G47.30 Sleep apnea, unspecified; Z79.82 Long term (current) use of aspirin; Z79.899 Other long term (current) drug therapy; Z88.1 Allergy status to other antibiotic agents; Y79.2 Prosthetic and other implants, materials and accessory orthopedic devices associated with adverse incidents
CPT/HCPCS: 96365; J0878

== ENCOUNTER 2024-08-11 00:29 | Day surgery (SDC) | payer OTHER ==
[2024-08-11] MEDS ORDERED: DAPTOmycin 600 MG in NS 50 ML IV SCH (06:00)
[2024-08-11 14:00] VITALS: BP 115/67
== END 2024-08-11 14:18 | disposition home or self-care (01) ==
LOC: ATC 00:29
DX: T84.53XA Infection and inflammatory reaction due to internal right knee prosthesis, initial encounter (principal); B96.89 Other specified bacterial agents as the cause of diseases classified elsewhere; B95.7 Other staphylococcus as the cause of diseases classified elsewhere; I47.10 Supraventricular tachycardia, unspecified; I10 Essential (primary) hypertension; G47.30 Sleep apnea, unspecified; Z79.1 Long term (current) use of non-steroidal anti-inflammatories (NSAID); Z79.82 Long term (current) use of aspirin; Z79.899 Other long term (current) drug therapy; Z88.8 Allergy status to other drugs, medicaments and biological substances; Y79.2 Prosthetic and other implants, materials and accessory orthopedic devices associated with adverse incidents
CPT/HCPCS: 96365; J0878

== ENCOUNTER 2024-08-12 06:26 | Day surgery (SDC) | payer OTHER ==
[~2024-08-12 06:26] MED LIST changes: +DAPTOmycin 600 MG in NS 50 ML IV SCH
[2024-08-12 13:24] VITALS: BP 121/72
== END 2024-08-12 13:46 | disposition home or self-care (01) ==
LOC: ATC 06:26
DX: T84.53XA Infection and inflammatory reaction due to internal right knee prosthesis, initial encounter (principal); I10 Essential (primary) hypertension; G47.30 Sleep apnea, unspecified; Z99.89 Dependence on other enabling machines and devices; Y83.8 Other surgical procedures as the cause of abnormal reaction of the patient, or of later complication, without mention of misadventure at the time of the procedure
CPT/HCPCS: 96365; J0878

== ENCOUNTER 2024-08-13 01:56 | Day surgery (SDC) | payer OTHER ==
[~2024-08-13 01:56] MED LIST changes: -DAPTOmycin 600 MG in NS 50 ML IV SCH
[2024-08-13] MEDS ORDERED: DAPTOmycin 600 MG in NS 50 ML IV SCH (06:00)
[2024-08-13 13:19] VITALS: BP 125/81
== END 2024-08-13 13:42 | disposition home or self-care (01) ==
LOC: ATC 01:56
DX: T84.53XA Infection and inflammatory reaction due to internal right knee prosthesis, initial encounter (principal); I10 Essential (primary) hypertension; G47.30 Sleep apnea, unspecified; Z99.89 Dependence on other enabling machines and devices; Y83.8 Other surgical procedures as the cause of abnormal reaction of the patient, or of later complication, without mention of misadventure at the time of the procedure
CPT/HCPCS: 96365; J0878

== ENCOUNTER 2024-08-16 01:47 | Day surgery (SDC) | payer OTHER ==
[2024-08-16] MEDS ORDERED: DAPTOmycin 600 MG in NS 50 ML IV SCH (06:00)
[2024-08-16 13:28] VITALS: BP 119/72
== END 2024-08-16 13:53 | disposition home or self-care (01) ==
LOC: ATC 01:47
DX: T84.53XA Infection and inflammatory reaction due to internal right knee prosthesis, initial encounter (principal); B96.89 Other specified bacterial agents as the cause of diseases classified elsewhere; B95.7 Other staphylococcus as the cause of diseases classified elsewhere; I47.10 Supraventricular tachycardia, unspecified; I10 Essential (primary) hypertension; G47.30 Sleep apnea, unspecified; Z79.1 Long term (current) use of non-steroidal anti-inflammatories (NSAID); Z79.82 Long term (current) use of aspirin; Z79.899 Other long term (current) drug therapy; Z88.8 Allergy status to other drugs, medicaments and biological substances; Y79.2 Prosthetic and other implants, materials and accessory orthopedic devices associated with adverse incidents
CPT/HCPCS: 96365; J0878

== ENCOUNTER 2024-08-23 04:25 | Day surgery (SDC) | payer OTHER ==
[2024-08-23] MEDS ORDERED: DAPTOmycin 600 MG in NS 50 ML IV SCH (06:00)
[2024-08-23 13:28] VITALS: BP 124/73
== END 2024-08-23 13:50 | disposition home or self-care (01) ==
LOC: ATC 04:25
DX: T84.7XXA Infection and inflammatory reaction due to other internal orthopedic prosthetic devices, implants and grafts, initial encounter (principal); Y79.8 Miscellaneous orthopedic devices associated with adverse incidents, not elsewhere classified; I10 Essential (primary) hypertension; Z79.899 Other long term (current) drug therapy; Z79.82 Long term (current) use of aspirin; Z88.8 Allergy status to other drugs, medicaments and biological substances
CPT/HCPCS: 96365; J0878

== ENCOUNTER 2024-08-24 03:56 | Day surgery (SDC) | payer OTHER ==
[2024-08-24] MEDS ORDERED: DAPTOmycin 600 MG in NS 50 ML IV SCH (06:00)
[2024-08-24 13:37] VITALS: BP 117/68
== END 2024-08-24 13:53 | disposition home or self-care (01) ==
LOC: ATC 03:56
DX: T84.53XA Infection and inflammatory reaction due to internal right knee prosthesis, initial encounter (principal); B96.89 Other specified bacterial agents as the cause of diseases classified elsewhere; B95.7 Other staphylococcus as the cause of diseases classified elsewhere; I47.10 Supraventricular tachycardia, unspecified; I10 Essential (primary) hypertension; G47.30 Sleep apnea, unspecified; Z79.1 Long term (current) use of non-steroidal anti-inflammatories (NSAID); Z79.82 Long term (current) use of aspirin; Z79.899 Other long term (current) drug therapy; Y79.2 Prosthetic and other implants, materials and accessory orthopedic devices associated with adverse incidents
CPT/HCPCS: 96365; J0878

== ENCOUNTER 2024-08-25 04:26 | Day surgery (SDC) | payer OTHER ==
[2024-08-25] MEDS ORDERED: DAPTOmycin 600 MG in NS 50 ML IV SCH (06:00)
[2024-08-25 13:19] VITALS: BP 112/65
--- NOTE | 2024-08-25 14:23 | NUR ---
Pt was prescribed a new oral antibiotic from the ID MD after his appointment this am. He will be picking up the med later today. He doesn't know the name of the antibiotic, check the most recent fills from his pharmacy later today to see the name of the antibiotic.
== END 2024-08-25 13:45 | disposition home or self-care (01) ==
LOC: ATC 04:26
DX: T84.53XA Infection and inflammatory reaction due to internal right knee prosthesis, initial encounter (principal); I10 Essential (primary) hypertension; Y83.8 Other surgical procedures as the cause of abnormal reaction of the patient, or of later complication, without mention of misadventure at the time of the procedure
CPT/HCPCS: 96365; J0878

== ENCOUNTER 2024-08-26 01:05 | Day surgery (SDC) | payer OTHER ==
[2024-08-26] MEDS ORDERED: DAPTOmycin 600 MG in NS 50 ML IV SCH (06:00)
[2024-08-26 13:37] VITALS: BP 119/71
[2024-08-27] MEDS ORDERED: Cipro500 MG PO (13:28)
== END 2024-08-26 14:00 | disposition home or self-care (01) ==
LOC: ATC 01:05
DX: T84.53XA Infection and inflammatory reaction due to internal right knee prosthesis, initial encounter (principal); B96.89 Other specified bacterial agents as the cause of diseases classified elsewhere; B95.7 Other staphylococcus as the cause of diseases classified elsewhere; I47.10 Supraventricular tachycardia, unspecified; I10 Essential (primary) hypertension; G47.30 Sleep apnea, unspecified; Z79.82 Long term (current) use of aspirin; Z79.899 Other long term (current) drug therapy; Z88.8 Allergy status to other drugs, medicaments and biological substances; Y79.2 Prosthetic and other implants, materials and accessory orthopedic devices associated with adverse incidents
CPT/HCPCS: 96365; J0878

== ENCOUNTER 2024-08-27 01:52 | Day surgery (SDC) | payer OTHER ==
[2024-08-27] MEDS ORDERED: DAPTOmycin 600 MG in NS 50 ML IV SCH (06:00)
[2024-08-27] MEDS ORDERED: Cipro500 MG PO (13:28)
[2024-08-27 13:30] VITALS: BP 110/70
== END 2024-08-27 13:52 | disposition home or self-care (01) ==
LOC: ATC 01:52
DX: T84.53XA Infection and inflammatory reaction due to internal right knee prosthesis, initial encounter (principal); Y79.2 Prosthetic and other implants, materials and accessory orthopedic devices associated with adverse incidents; I10 Essential (primary) hypertension; G47.30 Sleep apnea, unspecified; Z88.8 Allergy status to other drugs, medicaments and biological substances; Z79.82 Long term (current) use of aspirin; Z79.899 Other long term (current) drug therapy
CPT/HCPCS: 96365; J0878

== ENCOUNTER 2024-08-28 00:56 | Day surgery (SDC) | payer OTHER ==
[~2024-08-28 00:56] MED LIST changes: +Cipro500 MG PO
[2024-08-28] MEDS ORDERED: DAPTOmycin 600 MG in NS 50 ML IV SCH (06:00)
[2024-08-28 14:09] VITALS: BP 120/70
== END 2024-08-28 14:45 | disposition home or self-care (01) ==
LOC: ATC 00:56
DX: T84.53XA Infection and inflammatory reaction due to internal right knee prosthesis, initial encounter (principal); B96.89 Other specified bacterial agents as the cause of diseases classified elsewhere; B95.7 Other staphylococcus as the cause of diseases classified elsewhere; I10 Essential (primary) hypertension; G47.30 Sleep apnea, unspecified; I47.10 Supraventricular tachycardia, unspecified; Z79.1 Long term (current) use of non-steroidal anti-inflammatories (NSAID); Z79.82 Long term (current) use of aspirin; Z79.899 Other long term (current) drug therapy; Z88.8 Allergy status to other drugs, medicaments and biological substances; Y79.2 Prosthetic and other implants, materials and accessory orthopedic devices associated with adverse incidents
CPT/HCPCS: 96365; J0878

== ENCOUNTER 2024-08-29 02:26 | Day surgery (SDC) | payer OTHER ==
[2024-08-29] MEDS ORDERED: DAPTOmycin 600 MG in NS 50 ML IV SCH (06:00)
[2024-08-29] MEDS ORDERED: Alteplase Recombinant 2 MG / Vial IV SCH (07:25)
[2024-08-29 13:47] VITALS: BP 110/71
[2024-08-29 14:13] LABS: BASOPHILS ABSOLUTE AUTO 0.03 K/mm3 (0.00-0.23); BASOPHILS PERCENT AUTO 0 % (0-2); EOSINOPHILS ABSOLUTE AUTO 0.24 K/mm3 (0.00-0.68); EOSINOPHILS PERCENT AUTO 4 % (0-6); Hematocrit 38.3 % (37.0-53.0); Hemoglobin 12.2 g/dL (13.5-17.5); IMMATURE GRAN ABSOLUTE AUTO 0.03 K/mm3 (0.00-0.10); IMMATURE GRAN PERCENT AUTO 0 % (0-1); LYMPHOCYTES ABSOLUTE AUTO 1.24 K/mm3 (0.84-5.20); LYMPHOCYTES PERCENT AUTO 18 % (21-46); MONOCYTES ABSOLUTE AUTO 0.35 K/mm3 (0.16-1.47); MONOCYTES PERCENT AUTO 5 % (4-13); Mean Corpuscular HGB 28.1 pg (26.0-34.0); Mean Corpuscular HGB Conc 31.9 g/dL (31.5-36.5); Mean Corpuscular Volume 88 fL (80-100); Mean Platelet Volume 8.9 fL (9.1-12.4); NEUTROPHILS ABSOLUTE AUTO 4.95 K/mm3 (1.96-9.15); NEUTROPHILS PERCENT AUTO 73 % (41-73); Platelet Count 351 K/mm3 (150-400); RDW Coefficient Variation 13.9 % (11.7-14.2); RDW Standard Deviation 45.1 fL (35.1-46.3); Red Blood Cell Count 4.34 M/mm3 (4.30-5.90); White Blood Cell Count 6.84 K/mm3 (4.00-11.30)
[2024-08-29 14:30] LABS: C-REACTIVE PROTEIN, EXT RANGE 0.39 mg/dL (0.000-0.300)
[2024-08-29 14:37] LABS: Albumin, Blood 3.4 g/dL (3.4-5.0); Albumin/Globulin Ratio 0.9 (0.8-1.8); Bilirubin, Total 0.2 mg/dL (0.1-1.0); Bun/Creatinine Ratio 12.7 (12.0-20.0); Calcium, Blood 9.2 mg/dL (8.5-10.1); Creatinine, Blood 1.02 mg/dL (0.60-1.20); Globulin, Blood 3.9 g/dL (2.2-4.0); Potassium, Blood 3.8 mmol/L (3.5-5.5); Total Protein, Blood 7.3 g/dL (6.4-8.2)
== END 2024-08-29 14:05 | disposition home or self-care (01) ==
LOC: ATC 02:26
PROVIDERS: Internal Medicine
DX: T84.53XA Infection and inflammatory reaction due to internal right knee prosthesis, initial encounter (principal); Y79.2 Prosthetic and other implants, materials and accessory orthopedic devices associated with adverse incidents; I10 Essential (primary) hypertension; G47.30 Sleep apnea, unspecified; Z99.81 Dependence on supplemental oxygen
CPT/HCPCS: 80053; 82550; 85025; 85651; 86140; 96365; J0878

== ENCOUNTER 2024-08-30 01:20 | Day surgery (SDC) | payer OTHER ==
[2024-08-30] MEDS ORDERED: DAPTOmycin 600 MG in NS 50 ML IV SCH (06:00)
[2024-08-30 13:42] VITALS: BP 124/73
== END 2024-08-30 14:01 | disposition home or self-care (01) ==
LOC: ATC 01:20
DX: T84.53XA Infection and inflammatory reaction due to internal right knee prosthesis, initial encounter (principal); Y83.8 Other surgical procedures as the cause of abnormal reaction of the patient, or of later complication, without mention of misadventure at the time of the procedure; I10 Essential (primary) hypertension
CPT/HCPCS: 96365; J0878

== ENCOUNTER 2024-09-03 00:34 | Day surgery (SDC) | payer OTHER ==
[2024-09-03] MEDS ORDERED: DAPTOmycin 600 MG in NS 50 ML IV SCH (06:00)
[2024-09-03 13:30] VITALS: BP 134/81
== END 2024-09-03 13:53 | disposition home or self-care (01) ==
LOC: ATC 00:34
DX: T84.53XA Infection and inflammatory reaction due to internal right knee prosthesis, initial encounter (principal); Y79.2 Prosthetic and other implants, materials and accessory orthopedic devices associated with adverse incidents; I10 Essential (primary) hypertension; G47.30 Sleep apnea, unspecified; Z88.8 Allergy status to other drugs, medicaments and biological substances; Z79.899 Other long term (current) drug therapy
CPT/HCPCS: 96365; J0878

== ENCOUNTER 2024-09-17 12:28 | Observation (INO) | payer OTHER ==
[~2024-09-17] VITALS: Ht 190.5 cm; Wt 99.2 kg
[~2024-09-17 12:28] MED LIST changes: -ASPIRIN REGIMEN81 MG PO; -Amphetamine Sal15 MG PO; -ELIQUIS5 M2 PO; -FAMO20 PO; -MONDOXYNE NL100 MG PO; -Methocarbamol500 MG PO; -NALOXONE HCL4 MG; -[UNRECOGNIZED DRUG - CODE] PO
[2024-09-17] MEDS ORDERED: MONDOXYNE NL100 MG PO (13:45)
[2024-09-17] MEDS ORDERED: ASPIRIN REGIMEN81 MG PO (13:46)
[2024-09-17] MEDS ORDERED: [UNRECOGNIZED DRUG - CODE] PO (13:46)
[2024-09-17] MEDS ORDERED: Methocarbamol500 MG PO (13:46)
[2024-09-17] MEDS ORDERED: NALOXONE HCL4 MG (13:46)
[2024-09-17 14:18] LABS: International Normalized Ratio 1.09; Prothrombin Time Results 11.9 Sec (9.7-11.5)
[2024-09-17] MEDS ORDERED: Morphine Sulfate 4 MG/1 ML Injection IV ONE (14:40)
[2024-09-17] MEDS ORDERED: Dose Adjust by Pharmacy XX STA (15:22)
[2024-09-17] MEDS ORDERED: Heparin Sodium 5000 Units/ML 1ML MDV IV ONE (15:25)
[2024-09-17] MEDS ORDERED: Heparin Sodium,Porcine/0.5 NS 500 ML IV SCH (15:25)
[2024-09-17] MEDS ORDERED: Temazepam 15 MG Cap PO PRN (16:25)
[2024-09-17] MEDS ORDERED: Ondansetron 4 MG TAB PO PRN (16:25)
[2024-09-17] MEDS ORDERED: Ondansetron HCl 2 MG / ML 2ML Vial IV PRN (16:25)
[2024-09-17] MEDS ORDERED: OxyCODONE HCL 5 MG TAB PO PRN (16:25)
[2024-09-17 18:11] VITALS: BP 136/78
[2024-09-17 20:16] VITALS: BP 127/79
[2024-09-17] MEDS ORDERED: Methocarbamol 500 MG Tab PO SCH (21:00)
[2024-09-17] MEDS ORDERED: Famotidine 20 MG Tab PO SCH (21:00)
[2024-09-17] MEDS ORDERED: Doxycycline Hyclate 100 MG TAB PO SCH (21:00)
[2024-09-17] MEDS ORDERED: Clarify Drug Order XX ONE (23:05)
[2024-09-18 00:03] VITALS: BP 125/76
[2024-09-18] MEDS ORDERED: Guaifenesin/Dextromethorphan Syrup 5 ML UDC PO PRN (03:40)
[2024-09-18 04:36] LABS: BASOPHILS ABSOLUTE AUTO 0.02 K/mm3 (0.00-0.23); BASOPHILS PERCENT AUTO 0 % (0-2); EOSINOPHILS ABSOLUTE AUTO 0.45 K/mm3 (0.00-0.68); EOSINOPHILS PERCENT AUTO 7 % (0-6); Hemoglobin 10.1 g/dL (13.5-17.5); IMMATURE GRAN ABSOLUTE AUTO 0.03 K/mm3 (0.00-0.10); IMMATURE GRAN PERCENT AUTO 1 % (0-1); LYMPHOCYTES ABSOLUTE AUTO 1.22 K/mm3 (0.84-5.20); LYMPHOCYTES PERCENT AUTO 20 % (21-46); MONOCYTES ABSOLUTE AUTO 0.41 K/mm3 (0.16-1.47); MONOCYTES PERCENT AUTO 7 % (4-13); Mean Corpuscular HGB 27.5 pg (26.0-34.0); Mean Corpuscular HGB Conc 31.6 g/dL (31.5-36.5); Mean Corpuscular Volume 87 fL (80-100); Mean Platelet Volume 8.9 fL (9.1-12.4); NEUTROPHILS PERCENT AUTO 65 % (41-73); Platelet Count 300 K/mm3 (150-400); RDW Coefficient Variation 14.6 % (11.7-14.2); RDW Standard Deviation 47.1 fL (35.1-46.3); Red Blood Cell Count 3.67 M/mm3 (4.30-5.90); White Blood Cell Count 6.13 K/mm3 (4.00-11.30)
[2024-09-18 05:08] LABS: Albumin, Blood 2.8 g/dL (3.4-5.0); Albumin/Globulin Ratio 0.7 (0.8-1.8); Bilirubin, Total 0.3 mg/dL (0.1-1.0); Bun/Creatinine Ratio 16.4 (12.0-20.0); Calcium, Blood 8.8 mg/dL (8.5-10.1); Creatinine, Blood 0.91 mg/dL (0.60-1.20); Globulin, Blood 3.8 g/dL (2.2-4.0); Potassium, Blood 3.6 mmol/L (3.5-5.5); Total Protein, Blood 6.6 g/dL (6.4-8.2)
[2024-09-18] MEDS ORDERED: Clarify Drug Order XX ONE (05:30)
[2024-09-18 05:31] VITALS: BP 113/67
--- NOTE | 2024-09-18 07:39 | NUR ---
SHIFT SUMMARY; PATIENT SLEPT WELL, USING HIS CPAP.WITH 2.5L O2 BLEED-IN. WOUND VAC CONTINUOUS WITH SCANT DRAINAGE NOTED. CRYO THERAPY IN PLACE. HEPARIN CONT @ 18U/KG/HR ALL SHIFT. MEDICATED WITH PRN SLEEP AND PAIN MEDS. TELE SR 70
[2024-09-18 08:02] VITALS: BP 126/88
[2024-09-18] MEDS ORDERED: LevoFLOXacin 750 MG Tab PO SCH (09:00)
[2024-09-18] MEDS ORDERED: Docusate Sodium Liquid 100 MG UDC PO SCH (09:00)
[2024-09-18] MEDS ORDERED: FAMO20 PO (10:33)
[2024-09-18] MEDS ORDERED: ELIQUIS5 M2 PO (10:34)
[2024-09-18] MEDS ORDERED: Amphetamine Sal15 MG PO (11:30)
[2024-09-18 11:35] VITALS: BP 132/83
--- NOTE | 2024-09-18 11:42 | NUR ---
WOUND VAC TO DC PER MD ORDERS. PT TO VISIT WOUND CARE CLINIC AFTER DC FOR RIGHT KNEE, THIS RN MADE APPOINTMENT FOR PT TO VISIT WOUND CARE CLINIC ON 09/28/24 AT 1145AM. THIS RN WILL GIVE PT INFORMATION AND NUMBER TO CHANGE APPOINTMENT IF NEED BE.
[2024-09-18] MEDS ORDERED: Apixaban 5 MG Tab PO ONE (11:55)
--- NOTE | 2024-09-18 12:40 | NUR ---
DISCHARGE PT AOX4, COOPERATIVE, ABLE TO MAKE NEEDS KNOWN. PT IS SBA ASSIST USING CRUTCHES TO TRANFER TO AND FROM BED. PT ON ROOM AIR, TELE DC'D AND 2 IVS DC'D BY THIS RN WITHOUT EVENTS. DID PROVIDE PT WITH WOUND CARE SUPPLIES UNTIL APPOINTMENT AND WOUND CARE CLINIC. DC'D HEPARIN AND ADMINISTERED ELIQUIS PER EMAR PRIOR TO DC. WENT OVER DC PAPERWORK WITH PT AND FAMILY MEMBER. PT TRANSPORTED TO ENTRANCE VIA WC BY MEAT COUNTER WORKER.
== END 2024-09-18 13:48 | disposition home or self-care (01) ==
LOC: ER 12:28 → MEDS 12:29
PROVIDERS: Student in an Organized Health Care Education/Training Program; ADMIT Internal Medicine
DX: I26.99 Other pulmonary embolism without acute cor pulmonale (principal); M02.30 Reiter's disease, unspecified site; G47.30 Sleep apnea, unspecified; Z79.899 Other long term (current) drug therapy
CPT/HCPCS: 36415; 80053; 83880; 84484; 85025; 85520; 85610; 85730; 93005; 93010; 93970; 94762; 96365; 96366; 96375; 96376; 99285-25; A9270; G0378; J1644; J2270

== ENCOUNTER → 2024-09-17 | Outpatient (CLI) | payer OTHER ==
[~2024-09-17] MED LIST changes: +ASPIRIN REGIMEN81 MG PO; +Amphetamine Sal15 MG PO; +ELIQUIS5 M2 PO; +FAMO20 PO; +MONDOXYNE NL100 MG PO; +Methocarbamol500 MG PO; +NALOXONE HCL4 MG; +[UNRECOGNIZED DRUG - CODE] PO
[2024-09-17 10:34] LABS: BASOPHILS ABSOLUTE AUTO 0.02 K/mm3 (0.00-0.23); BASOPHILS PERCENT AUTO 0 % (0-2); EOSINOPHILS ABSOLUTE AUTO 0.34 K/mm3 (0.00-0.68); EOSINOPHILS PERCENT AUTO 4 % (0-6); Hematocrit 36.3 % (37.0-53.0); Hemoglobin 11.7 g/dL (13.5-17.5); IMMATURE GRAN ABSOLUTE AUTO 0.03 K/mm3 (0.00-0.10); IMMATURE GRAN PERCENT AUTO 0 % (0-1); LYMPHOCYTES ABSOLUTE AUTO 0.92 K/mm3 (0.84-5.20); LYMPHOCYTES PERCENT AUTO 12 % (21-46); MONOCYTES ABSOLUTE AUTO 0.44 K/mm3 (0.16-1.47); MONOCYTES PERCENT AUTO 6 % (4-13); Mean Corpuscular HGB 28.2 pg (26.0-34.0); Mean Corpuscular HGB Conc 32.2 g/dL (31.5-36.5); Mean Corpuscular Volume 88 fL (80-100); Mean Platelet Volume 8.8 fL (9.1-12.4); NEUTROPHILS ABSOLUTE AUTO 5.98 K/mm3 (1.96-9.15); NEUTROPHILS PERCENT AUTO 77 % (41-73); Platelet Count 312 K/mm3 (150-400); RDW Coefficient Variation 14.7 % (11.7-14.2); RDW Standard Deviation 47.2 fL (35.1-46.3); Red Blood Cell Count 4.15 M/mm3 (4.30-5.90); White Blood Cell Count 7.73 K/mm3 (4.00-11.30)
[2024-09-17 10:38] LABS: Bun/Creatinine Ratio 14.6 (12.0-20.0); Calcium, Blood 9.9 mg/dL (8.5-10.1); Creatinine, Blood 1.03 mg/dL (0.60-1.20); Potassium, Blood 3.9 mmol/L (3.5-5.5)
== END ==
LOC: LAB 10:29 → LAB SHORT 10:29
PROVIDERS: Physician Assistant
DX: R06.00 Dyspnea, unspecified (principal)
CPT/HCPCS: 80048; 84484; 85025; 85379

== ENCOUNTER 2024-11-14 00:18 | Emergency (ER) | payer OTHER ==
[~2024-11-14] VITALS: Ht 193 cm; Wt 104.3 kg
[~2024-11-14 00:18] MED LIST changes: +ASPIRIN REGIMEN81 MG PO; +Amphetamine Sal15 MG PO; +ELIQUIS5 M2 PO; +FAMO20 PO; +MONDOXYNE NL100 MG PO; +Methocarbamol500 MG PO; +NALOXONE HCL4 MG; +[UNRECOGNIZED DRUG - CODE] PO
[2024-11-14] MEDS ORDERED: Ketorolac Tromethamine 15mg Vial IV ONE (01:30)
[2024-11-14 02:05] LABS: Alanine Aminotransfer (ALT/SGP 23.0 U/L (12-78); Albumin, Blood 3.5 g/dL (3.4-5.0); Albumin/Globulin Ratio 1.0 (0.8-1.8); Anion Gap 9.0 mmol/L (3-11); Aspartate Aminotrans (AST/SGOT 19.0 U/L (12-37); Bilirubin, Total 0.3 mg/dL (0.1-1.0); Blood Urea Nitrogen 21.0 mg/dL (8-24); CO2, Blood 26.0 mmol/L (21-32); Calcium, Blood 8.8 mg/dL (8.5-10.1); Chloride, Blood 108.0 mmol/L (98-108); Creatinine, Blood 1.16 mg/dL (0.60-1.20); Globulin, Blood 3.6 g/dL (2.2-4.0); Glucose, Blood 108.0 mg/dL (70-99); Potassium, Blood 4.1 mmol/L (3.5-5.5); Sodium, Blood 139.0 mmol/L (136-145); Total Protein, Blood 7.1 g/dL (6.4-8.2)
[2024-11-14 02:11] LABS: BASOPHILS ABSOLUTE AUTO 0.03 K/mm3 (0.00-0.23); BASOPHILS PERCENT AUTO 0 % (0-2); EOSINOPHILS ABSOLUTE AUTO 0.19 K/mm3 (0.00-0.68); EOSINOPHILS PERCENT AUTO 2 % (0-6); Hematocrit 40.3 % (37.0-53.0); Hemoglobin 12.6 g/dL (13.5-17.5); IMMATURE GRAN ABSOLUTE AUTO 0.02 K/mm3 (0.00-0.10); IMMATURE GRAN PERCENT AUTO 0 % (0-1); LYMPHOCYTES ABSOLUTE AUTO 1.19 K/mm3 (0.84-5.20); LYMPHOCYTES PERCENT AUTO 14 % (21-46); MONOCYTES ABSOLUTE AUTO 0.66 K/mm3 (0.16-1.47); MONOCYTES PERCENT AUTO 8 % (4-13); Mean Corpuscular HGB Conc 31.3 g/dL (31.5-36.5); Mean Corpuscular Volume 87 fL (80-100); NEUTROPHILS ABSOLUTE AUTO 6.73 K/mm3 (1.96-9.15); NEUTROPHILS PERCENT AUTO 76 % (41-73); NRBC ABSOLUTE 0.00 K/mm3 (0.00-0.02); NRBC Auto 0.0 /100 WBC (0.0-0.2); Platelet Count 229 K/mm3 (150-400); RDW Coefficient Variation 15.9 % (11.7-14.2); RDW Standard Deviation 49.8 fL (35.1-46.3)
[2024-11-14] MEDS ORDERED: FentaNYL Citrate 50 MCG/ML 2 ML Injection IV PRN (03:30)
[2024-11-14] MEDS ORDERED: Ondansetron HCl 2 MG / ML 2ML Vial ONE (03:35)
[2024-11-14 03:47] LABS: Source, Urine Clean Catch
[2024-11-14 03:49] LABS: Bilirubin, Urine Neg (Neg); Glucose Qualitative, Urine Neg (Neg); Ketones, Urine Neg (Neg); Leukocyte Esterase, Urine Neg (Neg); Protein, Urine 1+ (Neg); Specific Gravity, Urine 1.030 (1.003-1.022); Urobilinogen, Urine NORM (Normal)
[2024-11-14 03:54] LABS: Color, Urine Yellow (P-Yellow)
[2024-11-14] MEDS ORDERED: NS 1,000 ML IV SCH (03:55)
[2024-11-14 03:56] LABS: Red Blood Cells, Urine 25-50 /hpf (0-2); White Blood Cells, Urine 0-2 /hpf (0-5)
[2024-11-14 04:45] VITALS: BP 143/80
== END 2024-11-14 05:40 | disposition home or self-care (01) ==
LOC: ER 00:18
PROVIDERS: Emergency Medicine
DX: N13.2 Hydronephrosis with renal and ureteral calculous obstruction (principal); E86.0 Dehydration; R74.8 Abnormal levels of other serum enzymes; G47.30 Sleep apnea, unspecified; Z59.89 Other problems related to housing and economic circumstances; Z79.899 Other long term (current) drug therapy; Z79.82 Long term (current) use of aspirin
CPT/HCPCS: 74177; 80053; 81001; 83690; 85025; 96374-59; 96375; 99284-25; J1885; J2405; J3010; J7030; Q9967

== ENCOUNTER 2025-01-01 10:24 | Day surgery (SDC) | payer OTHER ==
[2025-01-01] MEDS ORDERED: DAPTOmycin 850 MG in NS 50 ML IV SCH (12:20)
[2025-01-01 16:06] VITALS: BP 143/103
[2025-01-01] MEDS ORDERED: AMLO5 PO (18:26)
[2025-01-01] MEDS ORDERED: OMEP20ER PO (18:27)
[2025-01-01] MEDS ORDERED: NEURONTIN600 MG PO (18:27)
[2025-01-01] MEDS ORDERED: NARCAN4 M1 INH (18:28)
== END 2025-01-01 16:29 | disposition home or self-care (01) ==
LOC: ATC 10:24
DX: T84.7XXA Infection and inflammatory reaction due to other internal orthopedic prosthetic devices, implants and grafts, initial encounter (principal); I10 Essential (primary) hypertension; G47.30 Sleep apnea, unspecified; Z79.01 Long term (current) use of anticoagulants; Z79.899 Other long term (current) drug therapy; Z86.718 Personal history of other venous thrombosis and embolism; Z96.651 Presence of right artificial knee joint
CPT/HCPCS: 96365; J0878

== ENCOUNTER 2025-01-03 11:10 | Day surgery (SDC) | payer OTHER ==
[~2025-01-03 11:10] MED LIST changes: +NARCAN4 M1 INH; +NEURONTIN600 MG PO
[2025-01-03] MEDS ORDERED: DAPTOmycin 850 MG in NS 50 ML IV SCH (11:25)
[2025-01-03 15:58] VITALS: BP 129/86
== END 2025-01-03 16:20 | disposition home or self-care (01) ==
LOC: ATC 11:10
DX: T84.7XXD Infection and inflammatory reaction due to other internal orthopedic prosthetic devices, implants and grafts, subsequent encounter (principal); Y79.2 Prosthetic and other implants, materials and accessory orthopedic devices associated with adverse incidents; Y83.4 Other reconstructive surgery as the cause of abnormal reaction of the patient, or of later complication, without mention of misadventure at the time of the procedure; M13.80 Other specified arthritis, unspecified site; I10 Essential (primary) hypertension; G47.30 Sleep apnea, unspecified; Z79.1 Long term (current) use of non-steroidal anti-inflammatories (NSAID); Z79.01 Long term (current) use of anticoagulants; Z79.899 Other long term (current) drug therapy; Z85.828 Personal history of other malignant neoplasm of skin; Z96.642 Presence of left artificial hip joint
CPT/HCPCS: 96365; J0878

== ENCOUNTER 2025-01-04 00:18 | Day surgery (SDC) | payer OTHER ==
[2025-01-04] MEDS ORDERED: DAPTOmycin 850 MG in NS 50 ML IV SCH (06:00)
[2025-01-04 16:08] VITALS: BP 143/88
== END 2025-01-04 17:47 | disposition home or self-care (01) ==
LOC: ATC 00:18
DX: T84.53XD Infection and inflammatory reaction due to internal right knee prosthesis, subsequent encounter (principal); I10 Essential (primary) hypertension; Z79.899 Other long term (current) drug therapy
CPT/HCPCS: 96365; J0878

== ENCOUNTER 2025-01-05 07:31 | Day surgery (SDC) | payer OTHER ==
[~2025-01-05 07:31] MED LIST changes: +DAPTOmycin 850 MG in NS 50 ML IV SCH
[2025-01-05 14:00] VITALS: BP 144/89
== END 2025-01-05 14:22 | disposition home or self-care (01) ==
LOC: ATC 07:31
DX: T84.7XXA Infection and inflammatory reaction due to other internal orthopedic prosthetic devices, implants and grafts, initial encounter (principal); I10 Essential (primary) hypertension; Z79.01 Long term (current) use of anticoagulants; Z79.899 Other long term (current) drug therapy
CPT/HCPCS: 96365; J0878

== ENCOUNTER 2025-01-06 00:53 | Day surgery (SDC) | payer OTHER ==
[~2025-01-06 00:53] MED LIST changes: -DAPTOmycin 850 MG in NS 50 ML IV SCH
[2025-01-06] MEDS ORDERED: DAPTOmycin 850 MG in NS 50 ML IV SCH (06:00)
[2025-01-06 13:30] VITALS: BP 132/89
== END 2025-01-06 13:53 | disposition home or self-care (01) ==
LOC: ATC 00:53
DX: T84.7XXA Infection and inflammatory reaction due to other internal orthopedic prosthetic devices, implants and grafts, initial encounter (principal); I10 Essential (primary) hypertension; G47.30 Sleep apnea, unspecified; Z79.01 Long term (current) use of anticoagulants; Z79.899 Other long term (current) drug therapy; Z86.711 Personal history of pulmonary embolism
CPT/HCPCS: 96365; J0878

== ENCOUNTER 2025-01-07 03:17 | Day surgery (SDC) | payer OTHER ==
[2025-01-07] MEDS ORDERED: DAPTOmycin 850 MG in NS 50 ML IV SCH (06:00)
[2025-01-07 13:26] VITALS: BP 142/91
== END 2025-01-07 13:59 | disposition home or self-care (01) ==
LOC: ATC 03:17
DX: T84.7XXA Infection and inflammatory reaction due to other internal orthopedic prosthetic devices, implants and grafts, initial encounter (principal); I47.10 Supraventricular tachycardia, unspecified; I10 Essential (primary) hypertension; G47.30 Sleep apnea, unspecified; Z86.711 Personal history of pulmonary embolism; Z79.01 Long term (current) use of anticoagulants; Z79.2 Long term (current) use of antibiotics; Z79.899 Other long term (current) drug therapy; Y79.2 Prosthetic and other implants, materials and accessory orthopedic devices associated with adverse incidents
CPT/HCPCS: 96365; J0878

== ENCOUNTER 2025-01-08 08:14 | Day surgery (SDC) | payer OTHER ==
[~2025-01-08 08:14] MED LIST changes: +DAPTOmycin 850 MG in NS 50 ML IV SCH
[2025-01-08 13:34] VITALS: BP 144/94
== END 2025-01-08 13:56 | disposition home or self-care (01) ==
LOC: ATC 08:14
DX: T84.7XXA Infection and inflammatory reaction due to other internal orthopedic prosthetic devices, implants and grafts, initial encounter (principal); I10 Essential (primary) hypertension; G47.30 Sleep apnea, unspecified; Z79.899 Other long term (current) drug therapy
CPT/HCPCS: 96365; J0878

== ENCOUNTER 2025-01-09 01:45 | Day surgery (SDC) | payer OTHER ==
[~2025-01-09 01:45] MED LIST changes: -DAPTOmycin 850 MG in NS 50 ML IV SCH
[2025-01-09] MEDS ORDERED: DAPTOmycin 850 MG in NS 50 ML IV SCH (06:00)
[2025-01-09 13:34] VITALS: BP 150/90
== END 2025-01-09 13:55 | disposition home or self-care (01) ==
LOC: ATC 01:45
DX: T84.53XA Infection and inflammatory reaction due to internal right knee prosthesis, initial encounter (principal); I47.10 Supraventricular tachycardia, unspecified; I10 Essential (primary) hypertension; G47.30 Sleep apnea, unspecified; Z86.711 Personal history of pulmonary embolism; Z79.01 Long term (current) use of anticoagulants; Z79.1 Long term (current) use of non-steroidal anti-inflammatories (NSAID); Z79.899 Other long term (current) drug therapy; Y79.2 Prosthetic and other implants, materials and accessory orthopedic devices associated with adverse incidents
CPT/HCPCS: 96365; J0878

== ENCOUNTER 2025-01-10 00:33 | Day surgery (SDC) | payer OTHER ==
[2025-01-10] MEDS ORDERED: DAPTOmycin 850 MG in NS 50 ML IV SCH (06:00)
[2025-01-10 13:22] VITALS: BP 167/96
[2025-01-11] MEDS ORDERED: DAPTOMYCIN700 MG/100 IV (13:37)
== END 2025-01-10 13:46 | disposition home or self-care (01) ==
LOC: ATC 00:33
DX: T84.53XA Infection and inflammatory reaction due to internal right knee prosthesis, initial encounter (principal); I47.10 Supraventricular tachycardia, unspecified; I10 Essential (primary) hypertension; G47.30 Sleep apnea, unspecified; Z86.711 Personal history of pulmonary embolism; Z79.01 Long term (current) use of anticoagulants; Z79.1 Long term (current) use of non-steroidal anti-inflammatories (NSAID); Z79.899 Other long term (current) drug therapy; Y79.2 Prosthetic and other implants, materials and accessory orthopedic devices associated with adverse incidents
CPT/HCPCS: 96365; J0878

== ENCOUNTER 2025-01-11 03:49 | Day surgery (SDC) | payer OTHER ==
[2025-01-11] MEDS ORDERED: DAPTOmycin 850 MG in NS 50 ML IV SCH (06:00)
[2025-01-11 13:37] VITALS: BP 124/73
[2025-01-11] MEDS ORDERED: DAPTOMYCIN700 MG/100 IV (13:37)
== END 2025-01-11 13:58 | disposition home or self-care (01) ==
LOC: ATC 03:49
DX: T84.7XXD Infection and inflammatory reaction due to other internal orthopedic prosthetic devices, implants and grafts, subsequent encounter (principal); I10 Essential (primary) hypertension; Y79.2 Prosthetic and other implants, materials and accessory orthopedic devices associated with adverse incidents; Z79.1 Long term (current) use of non-steroidal anti-inflammatories (NSAID); Z79.899 Other long term (current) drug therapy; Z96.642 Presence of left artificial hip joint; Z96.651 Presence of right artificial knee joint
CPT/HCPCS: 99213; J0878

== ENCOUNTER 2025-01-12 00:47 | Day surgery (SDC) | payer OTHER ==
[~2025-01-12 00:47] MED LIST changes: +DAPTOMYCIN700 MG/100 IV
[2025-01-12] MEDS ORDERED: DAPTOmycin 850 MG in NS 50 ML IV SCH (06:00)
[2025-01-12 13:01] VITALS: BP 136/88
== END 2025-01-12 13:38 | disposition home or self-care (01) ==
LOC: ATC 00:47
DX: T84.7XXA Infection and inflammatory reaction due to other internal orthopedic prosthetic devices, implants and grafts, initial encounter (principal); I10 Essential (primary) hypertension; G47.30 Sleep apnea, unspecified; Z79.01 Long term (current) use of anticoagulants; Z79.899 Other long term (current) drug therapy; Z86.711 Personal history of pulmonary embolism
CPT/HCPCS: 96365; J0878

== ENCOUNTER 2025-01-13 02:30 | Day surgery (SDC) | payer OTHER ==
[2025-01-13] MEDS ORDERED: DAPTOmycin 850 MG in NS 50 ML IV SCH (06:00)
[2025-01-13 13:35] VITALS: BP 143/84
== END 2025-01-13 13:57 | disposition home or self-care (01) ==
LOC: ATC 02:30
DX: T84.7XXD Infection and inflammatory reaction due to other internal orthopedic prosthetic devices, implants and grafts, subsequent encounter (principal); I10 Essential (primary) hypertension; Z79.01 Long term (current) use of anticoagulants; Z79.899 Other long term (current) drug therapy
CPT/HCPCS: 99212